=== PATIENT | female | born 1925 | race Caucasian/White ===

== ENCOUNTER 2016-12-26 16:01 | Inpatient (IN) | payer MEDICARE, OTHER ==
[~2016-12-26] VITALS: Ht 157.5 cm; Wt 70.1 kg
--- NOTE | 2016-12-26 16:47 | PHYS DOC ---
Adult General Chief Complaint Chief Complaint: PSYCH EVALUATION HPI HPI Patient is a 89 year old F who presents with local clearance for psych evaluation. Patient was transferred from half-way secondary to increased combativeness for a medical clearance for geriatric psych. PT should has no complaints. Review of Systems Review of Systems GEN: Denies fevers, chills, sweats HEENT: Denies blurred vision, sore throat CV: Denies chest pain RESP: Denies shortness of air, cough GI: Denies n/v/d NEURO: Denies confusion, dizziness MSK: Denies weakness, joint pain/swelling Physical Exam Physical Exam GEN.: No apparent distress. Alert and oriented. HEENT: Head is normocephalic, atraumatic NECK: Supple. LUNGS: CTAB. HEART: RRR, S1, S2 present. Peripheral pulses intact ABDOMEN: Soft, nontender. Positive bowel sounds. EXTREMITIES: Without any cyanosis. NEUROLOGIC: Normal speech, normal tone PSYCHIATRIC: Normal affect, normal mood. SKIN: No ulcerations Current Patient Data Lab Results Laboratory Tests Test 12/26/16 16:30 White Blood Count 6.9 x10^3/uL Red Blood Count 4.01 x10^6/uL Hemoglobin 13.1 g/dL Hematocrit 39.4 % Mean Corpuscular Volume 98 fL Mean Corpuscular Hemoglobin 33 pg Mean Corpuscular Hemoglobin Concent 33 g/dL Red Cell Distribution Width 13.7 % Platelet Count 248 x10^3/uL Neutrophils (%) (Auto) 45 % Lymphocytes (%) (Auto) 39 % Monocytes (%) (Auto) 12 % Eosinophils (%) (Auto) 4 % Basophils (%) (Auto) 1 % Neutrophils # (Auto) 3.1 x10^3uL Lymphocytes # (Auto) 2.7 x10^3/uL Monocytes # (Auto) 0.8 x10^3/uL Eosinophils # (Auto) 0.2 x10^3/uL Basophils # (Auto) 0.1 x10^3/uL Sodium Level 141 mmol/L Potassium Level 3.8 mmol/L Chloride Level 105 mmol/L Carbon Dioxide Level 27 mmol/L Anion Gap 9 Blood Urea Nitrogen 12 mg/dL Creatinine 1.2 mg/dL Estimated GFR (Cockcroft-Gault) 42.3 BUN/Creatinine Ratio 10 Glucose Level 140 mg/dL Calcium Level 8.4 mg/dL Total Bilirubin 0.3 mg/dL Aspartate Amino Transf (AST/SGOT) 18 U/L Alanine Aminotransferase (ALT/SGPT) 16 U/L Alkaline Phosphatase 82 U/L Total Protein 7.6 g/dL Albumin 3.3 g/dL Albumin/Globulin Ratio 0.8 Lipase 167 U/L EKG EKG 1653: EKG shows normal sinus rhythm rate of 78 no STEMI [] Radiology/Procedures Radiology/Procedures Portable chest, 12/26/2016: History: COPD, hypertension The heart size and pulmonary vascularity are normal. There is calcific plaquing of the thoracic aorta. There is a retrocardiac mass just left of midline which is probably a hiatal hernia. No pulmonary infiltrates are seen. There is no evidence of pleural fluid. IMPRESSION: 1. Probable small hiatal hernia. 2. No acute cardiopulmonary abnormality is detected. [] Course & Med Decision Making Course & Med Decision Making Pertinent Labs and Imaging studies reviewed. (See chart for details) MDM: After reviewing the chart, CC/HPI/PMH, physical exam, [lab results], [ radiological results], I do not believe the patient has emergent medical condition warranting further workup and is medically cleared to be transferred to geriatric psych for further psychiatric evaluation [] Dragon Disclaimer Dragon Disclaimer This chart was dictated in whole or in part using Voice Recognition software in a busy, high-work load, and often noisy Emergency Department environment. It may contain unintended and wholly unrecognized errors or omissions. Departure Departure: Impression: Primary Impression: Combative behavior Disposition: 65 XFER TO PSYCH HOSP/UNIT Condition: STABLE OLIVER HILL DO Dec 26, 2016 16:47
[2016-12-26 16:51] LABS: BASO # 0.1 x10^3/uL (0.0-0.2); BASO % 1 % (0-3); EOS # 0.2 x10^3/uL (0.0-0.7); EOS % 4 % (0-3); HEMATOCRIT 39.4 % (36.0-47.0); HEMOGLOBIN 13.1 g/dL (12.0-15.5); LYMPH # 2.7 x10^3/uL (1.0-4.8); LYMPH % 39 % (24-48); MEAN CORPUSCULAR HEMOGLOBIN 33 pg (25-35); MEAN CORPUSCULAR HGB CONC 33 g/dL (31-37); MEAN CORPUSCULAR VOLUME 98 fL (79-100); MONO # 0.8 x10^3/uL (0.0-1.1); MONO % 12 % (0-9); NEUT # 3.1 x10^3uL (1.8-7.7); NEUT % 45 % (31-73); PLATELET COUNT 248 x10^3/uL (140-400); RED BLOOD COUNT 4.01 x10^6/uL (3.50-5.40); RED CELL DISTRIBUTION WIDTH 13.7 % (11.5-14.5); WHITE BLOOD COUNT 6.9 x10^3/uL (4.0-11.0)
--- NOTE | 2016-12-26 16:56 | RAD ---
Portable chest, 12/26/2016: History: COPD, hypertension The heart size and pulmonary vascularity are normal. There is calcific plaquing of the thoracic aorta. There is a retrocardiac mass just left of midline which is probably a hiatal hernia. No pulmonary infiltrates are seen. There is no evidence of pleural fluid. IMPRESSION: 1. Probable small hiatal hernia. 2. No acute cardiopulmonary abnormality is detected.
--- NOTE | 2016-12-26 17:01 | EKG ---
[address] [address] Test Date: 2016-12-26 Test Time: 16:50:43 Pat Name: ODALIS POWER Department: Room: Gender: F Corporate Human Resources Manager: DONITA : [id number] Requested By: OLIVER HILL Order Number: [id number] Reading MD: Faisal Damon Measurements Intervals Poth Rate: 78 P: 90 FL: 134 QRS: -9 QRSD: 80 T: 14 QT: 394 QTc: 453 Interpretive Statements SINUS RHYTHM ATRIAL PREMATURE COMPLEX(ES) Electronically Signed On 12-28-2016 8:52:23 CDT by Faisal Damon
[2016-12-26 17:04] LABS: ALBUMIN 3.3 g/dL (3.4-5.0); ALBUMIN/GLOBULIN RATIO 0.8 (1.0-1.7); CALCIUM 8.4 mg/dL (8.5-10.1); CREATININE 1.2 mg/dL (0.6-1.0); GFR 42.3; POTASSIUM 3.8 mmol/L (3.5-5.1); TOTAL BILIRUBIN 0.3 mg/dL (0.2-1.0); TOTAL PROTEIN 7.6 g/dL (6.4-8.2)
[2016-12-26 17:18] LABS: BACTERIA,URINE FEW /HPF (0-FEW); BILIRUBIN,URINE NEG (NEG); CLARITY,URINE HAZY; COLOR,URINE YELLOW; GLUCOSE,URINE NEG (NEG); NITRITE,URINE NEG (NEG); SQUAMOUS EPITHELIAL CELL,UR MANY /LPF; UROBILINOGEN,URINE 0.2 mg/dL (0.2 mg/dL)
[2016-12-26 18:35] VITALS: BP 142/73
[2016-12-26] MEDS ORDERED: LORA0.5T96 PO (19:08)
[2016-12-26] MEDS ORDERED: DOCU-109 PO (19:08)
[2016-12-26] MEDS ORDERED: CHOL10003 PO (19:08)
[2016-12-26] MEDS ORDERED: GLUC1CAP41 PO (19:08)
[2016-12-26] MEDS ORDERED: CALC-157 PO (19:08)
[2016-12-26] MEDS ORDERED: OXYB10TA7 PO (19:08)
[2016-12-26] MEDS ORDERED: CRAN405C PO (19:08)
[2016-12-26] MEDS ORDERED: ESTR42.53 VG (19:08)
[2016-12-26] MEDS ORDERED: ASPI-630 PO (19:08)
[2016-12-26] MEDS ORDERED: MAG360OR24 PO (19:09)
[2016-12-26] MEDS ORDERED: ACET325T9 PO ×2 (19:09)
[2016-12-26] MEDS ORDERED: OMEP20CA9 PO (19:09)
[2016-12-26] MEDS ORDERED: SERT25TA PO (19:09)
[2016-12-26] MEDS ORDERED: LEVO88TA2 PO (19:09)
[2016-12-26] MEDS ORDERED: BETA1TAB3 PO (19:09)
[2016-12-26] MEDS ORDERED: MEMA10TA PO (19:09)
[2016-12-26] MEDS ORDERED: SIMV10TA PO (19:09)
[2016-12-26] MEDS ORDERED: QUET50TA5 PO (19:09)
[2016-12-26] MEDS ORDERED: QUET100T4 PO (19:09)
[2016-12-26] MEDS ORDERED: MAG HYDROX/AL HYDROX/SIMETH 30 ML ORAL.SUSP PO PRN (19:15)
[2016-12-26] MEDS ORDERED: METHYL SALICYLATE/MENTHOL TOPICAL OINTMENT 29GM TUBE. TP PRN (19:15)
[2016-12-26] MEDS ORDERED: MAGNESIUM HYDROXIDE 2,400 MG/30 ML ORAL.SUSP. PO PRN (19:15)
[2016-12-26] MEDS ORDERED: ACETAMINOPHEN 325 MG TABLET PO PRN ×2 (19:15→20:30)
--- NOTE | 2016-12-26 19:50 | PDOC ---
Exam Geoff Demential Exam: Geoff Note: Please also refer to the separate dictated note~for this date of service dictated separately.~Patient seen individually. Discussed the patient with Nursing staff reviewed the chart.~Reviewed interim history and current functioning. Reviewed vital signs,~Labs/ Radiology~and current medications noted below. Continue current treatment with the changes noted in the dictated addendum note Assessment: Vital Signs: Vital Signs Date Time Temp Pulse Resp B/P (MAP) Pulse Ox O2 Delivery O2 Flow Rate FiO2 12/26/16 18:35 98.1 78 18 142/73 (96) 92 12/26/16 16:10 Room Air Labs: Laboratory Tests Test 12/26/16 16:20 12/26/16 16:30 Urine Collection Type Unknown Urine Color Yellow Urine Clarity Hazy Urine pH 6.0 Urine Specific [place] 1.010 Urine Protein Neg (NEG-TRACE) Urine Glucose (UA) Neg mg/dL (NEG) Urine Ketones (Stick) Trace mg/dL (NEG) Urine Blood Trace (NEG) Urine Nitrite Neg (NEG) Urine Bilirubin Neg (NEG) Urine Urobilinogen Dipstick 0.2 mg/dL (0.2 mg/dL) Urine Leukocyte Esterase Mod (NEG) Urine RBC 3-5 /HPF (0-2) Urine WBC 11-20 /HPF (0-4) Urine Squamous Epithelial Cells Many /LPF Urine Bacteria Few /HPF (0-FEW) White Blood Count 6.9 x10^3/uL (4.0-11.0) Red Blood Count 4.01 x10^6/uL (3.50-5.40) Hemoglobin 13.1 g/dL (12.0-15.5) Hematocrit 39.4 % (36.0-47.0) Mean Corpuscular Volume 98 fL (79-100) Mean Corpuscular Hemoglobin 33 pg (25-35) Mean Corpuscular Hemoglobin Concent 33 g/dL (31-37) Red Cell Distribution Width 13.7 % (11.5-14.5) Platelet Count 248 x10^3/uL (140-400) Neutrophils (%) (Auto) 45 % (31-73) Lymphocytes (%) (Auto) 39 % (24-48) Monocytes (%) (Auto) 12 % (0-9) H Eosinophils (%) (Auto) 4 % (0-3) H Basophils (%) (Auto) 1 % (0-3) Neutrophils # (Auto) 3.1 x10^3uL (1.8-7.7) Lymphocytes # (Auto) 2.7 x10^3/uL (1.0-4.8) Monocytes # (Auto) 0.8 x10^3/uL (0.0-1.1) Eosinophils # (Auto) 0.2 x10^3/uL (0.0-0.7) Basophils # (Auto) 0.1 x10^3/uL (0.0-0.2) Sodium Level 141 mmol/L (136-145) Potassium Level 3.8 mmol/L (3.5-5.1) Chloride Level 105 mmol/L (98-107) Carbon Dioxide Level 27 mmol/L (21-32) Anion Gap 9 (6-14) Blood Urea Nitrogen 12 mg/dL (7-20) Creatinine 1.2 mg/dL (0.6-1.0) H Estimated GFR (Cockcroft-Gault) 42.3 BUN/Creatinine Ratio 10 (6-20) Glucose Level 140 mg/dL (70-99) H Calcium Level 8.4 mg/dL (8.5-10.1) L Total Bilirubin 0.3 mg/dL (0.2-1.0) Aspartate Amino Transferase (AST) 18 U/L (15-37) Alanine Aminotransferase (ALT) 16 U/L (14-59) Alkaline Phosphatase 82 U/L (46-116) Total Protein 7.6 g/dL (6.4-8.2) Albumin 3.3 g/dL (3.4-5.0) L Albumin/Globulin Ratio 0.8 (1.0-1.7) L Lipase 167 U/L (73-393) Current Medications: Meds: Current Medications Lorazepam (Ativan) 0.5 mg PRN Q4HRS PRN PO ANXIETY; Start 12/26/16 at 19:15 Memantine (Namenda) 10 mg BID PO ; Start 12/26/16 at 21:00 Quetiapine Fumarate (SEROquel) 50 mg BID92 PO ; Start 12/27/16 at 09:00 Quetiapine Fumarate (SEROquel) 100 mg HS PO ; Start 12/26/16 at 21:00 Sertraline HCl (Zoloft) 25 mg DAILY PO ; Start 12/27/16 at 09:00 Acetaminophen (Tylenol) 650 mg PRN Q6HRS PRN PO PAIN / TEMP; Start 12/26/16 at 19:15 Multi-Ingredient Ointment (Analgesic [place]) 1 [place] PRN QID PRN TP MUSCLE PAIN; Start 12/26/16 at 19:15 Al Hydroxide/Mg Hydroxide (Mylanta Plus Xs) 15 ml PRN AFTMEALHC PRN PO DYSPEPSIA; Start 12/26/16 at 19:15 Magnesium Hydroxide (Milk Of Magnesia) 2,400 mg PRN QHS PRN PO CONSTIPATION; Start 12/26/16 at 19:15 Active Scripts Active Reported Zoloft (Sertraline Hcl) 25 Mg Tablet 25 Mg PO DAILY Zocor (Simvastatin) 10 Mg Tablet 10 Mg PO HS Tylenol (Acetaminophen) 325 Mg Tablet 650 Mg PO TID Tylenol (Acetaminophen) 325 Mg Tablet 650 Mg PO Q4HRS PRN Synthroid (Levothyroxine Sodium) 88 Mcg Tablet 88 Mcg PO DAILYAC Seroquel (Quetiapine Fumarate) 50 Mg Tablet 50 Mg PO BID92 Seroquel (Quetiapine Fumarate) 100 Mg Tablet 100 Mg PO HS Prosight Tablet (Beta-Carotene(A) W-C & E/Min) 1 Each Tablet 1 Each PO DAILY Omeprazole 20 Mg Capsule.dr 20 Mg PO DAILY Namenda (Memantine Hcl) 10 Mg Tablet 10 Mg PO BID Alum-Mag Hydroxide-Simeth Liq (Mag Hydrox/Al Hydrox/Simeth) 360 Ml Oral.susp 30 Ml PO Q4HRS PRN Glucosamine & Chondroitin Cap (Glucosa Barriga 2KCL/Chondroitin Barriga) 1 Each Capsule 1 Each PO BID Estrace (Estradiol) 42.5 Gm Cream.appl 1 Gm VG 3X/WEEK Ditropan Xl (Oxybutynin Chloride) 10 Mg Tab.er.24 10 Mg PO DAILY Cranberry (Cranberry Extract) 405 Mg Capsule 405 Mg PO BID Colace (Docusate Sodium) 100 Mg Capsule 100 Mg PO DAILY Vitamin D3 (Cholecalciferol (Vitamin D3)) 1,000 Unit Tablet 2,000 Unit PO Calcium 500 + Vit D 200 Tablet (Calcium Carbonate/Vitamin D3) 1 Each Tablet 1 Each PO DAILY Ativan (Lorazepam) 0.5 Mg Tablet 0.5 Mg PO PRN Q4HRS PRN Aspirin 81 Mg Tab.chew 81 Mg PO DAILY FERNANDA SOOD MD Dec 26, 2016 19:50
[2016-12-26] MEDS ORDERED: NON FORMULARY ITEM (Mag Hydrox/Al Hydrox/Simeth (Alum-Mag Hydroxide-Simeth Liq) 30 ML) PO PRN (20:30)
[2016-12-26] MEDS: MEMANTINE 10 MG TABLET. PO SCH (20:59)
[2016-12-26] MEDS: OXYBUTYNIN CHLORIDE 5 MG TABLET PO SCH (21:00)
[2016-12-26] MEDS: SIMVASTATIN 10 MG TABLET PO SCH (21:00)
[2016-12-26] MEDS: QUEtiapine 100 MG TABLET. PO SCH (21:00)
[2016-12-26] MEDS ORDERED: CRANBERRY EXTRACT 405 MG PO SCH (21:00)
[2016-12-26] MEDS: ACETAMINOPHEN 325 MG TABLET PO SCH (21:00)
[2016-12-26] MEDS: GLUCOSAMINE/CHOND 500/400MG CAPSULE PO SCH (21:00)
[2016-12-27 05:44] VITALS: BP 154/84
[2016-12-27] MEDS: LEVOTHYROXINE 88 MCG TABLET PO SCH (06:07)
[2016-12-27] MEDS: GLUCOSAMINE/CHOND 500/400MG CAPSULE PO SCH ×2 (08:40→20:34)
[2016-12-27] MEDS: MEMANTINE 10 MG TABLET. PO SCH ×2 (08:41→20:33)
[2016-12-27] MEDS: ACETAMINOPHEN 325 MG TABLET PO SCH ×3 (08:41→20:33)
[2016-12-27] MEDS: OXYBUTYNIN CHLORIDE 5 MG TABLET PO SCH ×2 (08:41→20:34)
[2016-12-27] MEDS: PANTOPRAZOLE 20 MG TABLET. PO SCH (08:44)
[2016-12-27] MEDS: SERTRALINE 25 MG TABLET. PO SCH (08:44)
[2016-12-27] MEDS: MULTIVITAMIN I-VITE TABLET. PO SCH (08:44)
[2016-12-27] MEDS: DOCUSATE SODIUM 100 MG CAPSULE PO SCH (08:44)
[2016-12-27] MEDS: CHOLECALCIFEROL (VITAMIN D3) 1,000 UNIT TABLET PO SCH (08:44)
[2016-12-27] MEDS: CALCIUM CARB/VIT D3 500/200 TABLET PO SCH (08:44)
[2016-12-27] MEDS: ASPIRIN 81 MG TAB.CHEW PO SCH (08:44)
[2016-12-27] MEDS: QUEtiapine 50 MG TABLET. PO SCH ×2 (08:44→14:07)
[2016-12-27] MEDS ORDERED: ESTRADIOL 0.01% VAGINAL CREAM 42.5GM TUBE. VG SCH (09:00)
[2016-12-27 14:13] LABS: THYROID STIM HORMONE (TSH) 3.382 uIU/mL (0.358-3.740)
[2016-12-27 15:09] LABS: FREE T4 0.88 ng/dL (0.76-1.46)
[2016-12-27 15:58] VITALS: BP 137/74
--- NOTE | 2016-12-27 16:30 | RAD ---
CT head and C-spine without contrast 12/27/2016 Clinical indication: Stabbing pain in right side of neck. Altered mental status. Comparison: None. Technique: Multiple CT images were obtained of the head and cervical spine without contrast occurring to standard protocol. Coronal and sagittal reformations were obtained of the cervical spine. PQRS Compliance Statement: One or more of the following individualized dose reduction techniques were utilized for this examination: 1. Automated exposure control 2. Adjustment of the mA and/or kV according to patient size 3. Use of iterative reconstruction technique Head: Ventricles and subarachnoid spaces are normal in size and configuration for age. There is patchy and confluent bilateral hemispheric white matter low attenuation compatible with moderate to severe nonspecific white matter disease. No acute intracranial hemorrhage or extra-axial fluid collection. The sullivan-white matter interval spaces are otherwise maintained. The basilar cisterns are patent. No midline shift. There is calcified atheromatous disease of the distal internal carotid arteries. Cervical spine: No acute cervical spine fracture or subluxation. Cervical vertebral body heights are maintained. There is multilevel cervical disc degeneration greatest amount agree at C5-C6 with disc space narrowing and mild anterior osteophyte formation. There is multilevel facet hypertrophy with no significant neural foraminal narrowing. Moderate bilateral axial arthrosis with no associated widening. The paraspinal soft tissues are within normal limits. There is moderate calcified atheromatous disease of the bilateral carotid bulbs with luminal stenosis not assessed due to lack of intravenous contrast. There is biapical pleural parenchymal scarring, asymmetric on the left. Impression: Head: 1. No acute intracranial hemorrhage. 2. Moderate to severe nonspecific white matter low attenuation which may be related to chronic small vessel ischemic disease. If further evaluation is clinically indicated, MRI head could be obtained. Cervical spine: 1. No acute cervical spine fracture or subluxation. 2. Mild biapical pleural parenchymal scarring, slightly asymmetric on the left. If clinically indicated, follow-up noncontrast CT chest in 6 months to assess for stability could be obtained.
--- NOTE | 2016-12-27 19:51 | PDOC ---
Exam Geoff Demential Exam: Geoff Note: Please also refer to the separate dictated note~for this date of service dictated separately.~Patient seen individually. Discussed the patient with Nursing staff reviewed the chart.~Reviewed interim history and current functioning. Reviewed vital signs,~Labs/ Radiology~and current medications noted below. Continue current treatment with the changes noted in the dictated addendum note Assessment: Vital Signs: Vital Signs Date Time Temp Pulse Resp B/P (MAP) Pulse Ox O2 Delivery O2 Flow Rate FiO2 12/27/16 15:58 97.5 84 18 137/74 (95) 92 Room Air I&O Intake and Output 12/27/16 07:00 Intake Total 80 ml Balance 80 ml Intake Oral 80 ml Current Medications: Meds: Current Medications Lorazepam (Ativan) 0.5 mg PRN Q4HRS PRN PO ANXIETY; Start 12/26/16 at 19:15 Memantine (Namenda) 10 mg BID PO Last administered on 12/27/16 08:41; Start at 21:00 Quetiapine Fumarate (SEROquel) 50 mg BID92 PO Last administered on 12/27/16 14 :07; Start 12/27/16 at 09:00 Quetiapine Fumarate (SEROquel) 100 mg HS PO Last administered on 12/26/16 21: 00; Start 12/26/16 at 21:00 Sertraline HCl (Zoloft) 25 mg DAILY PO Last administered on 12/27/16 08:44; Start 12/27/16 at 09:00 Acetaminophen (Tylenol) 650 mg PRN Q6HRS PRN PO PAIN / TEMP; Start 12/26/16 at 19:15; Stop 12/26/16 at 20:36; Status DC Multi-Ingredient Ointment (Analgesic [place]) 1 [place]ol[place] PRN QID PRN TP MUSCLE PAIN; Start 12/26/16 at 19:15 Al Hydroxide/Mg Hydroxide (Mylanta Plus Xs) 15 ml PRN AFTMEALHC PRN PO DYSPEPSIA; Start 12/26/16 at 19:15 Magnesium Hydroxide (Milk Of Magnesia) 2,400 mg PRN QHS PRN PO CONSTIPATION; Start 12/26/16 at 19:15 Acetaminophen (Tylenol) 650 mg PRN Q4HRS PRN PO MILD PAIN; Start 12/26/16 at 20 :30 Acetaminophen (Tylenol) 650 mg TID PO Last administered on 12/27/16 14:07; Start 12/26/16 at 21:00 Aspirin (Children'S Aspirin) 81 mg DAILY PO Last administered on 12/27/16 08: 44; Start 12/27/16 at 09:00 Calcium/Vitamin D (Oscal D 500mg/ 200uts) 1 tab DAILY PO Last administered on 08:44; Start 12/27/16 at 09:00 Vitamin D (Vitamin D3) 2,000 unit DAILY PO Last administered on 12/27/16 08:44 ; Start 12/27/16 at 09:00 Docusate Sodium (Colace) 100 mg DAILY PO Last administered on 12/27/16 08:44; Start 12/27/16 at 09:00 Estradiol (Estrace) 1 carol[place] 3X/WEEK VG ; Start 12/27/16 at 09:00; Stop 12/27/16 at 12:08; Status DC Levothyroxine Sodium (Synthroid) 88 mcg DAILY06 PO Last administered on 06:07; Start 12/27/16 at 06:00 Simvastatin (Zocor) 10 mg HS PO Last administered on 12/26/16 21:00; Start at 21:00 Multivitamins/ Minerals (I-Bobby) 1 tab DAILY PO Last administered on 12/27/16 08:44; Start 12/27/16 at 09:00 Non-Formulary Medication 405 mg BID PO ; Start 12/26/16 at 21:00; Stop 12/26/16 at 21:00; Status DC Glucosamine/ Chondroitin (Glucosamine-Chondroitin 500/400mg) 1 cap BID PO Last administered on 12/27/16 08:40; Start 12/26/16 at 21:00 Non-Formulary Medication 30 ml Q4HRS PRN PO indigestion; Start 12/26/16 at 20: 30; Stop 12/26/16 at 20:41; Status DC Pantoprazole Sodium (Protonix) 20 mg DAILYAC PO Last administered on 12/27/16 08:44; Start 12/27/16 at 07:30 Oxybutynin Chloride (Ditropan) 5 mg BID PO Last administered on 7/26/17at 08:41 ; Start 12/26/16 at 21:00 Estradiol (Estrace) 1 carolina MoWeFr@2100 VG ; Start 12/27/16 at 21:00 Active Scripts Active Reported Zoloft (Sertraline Hcl) 25 Mg Tablet 25 Mg PO DAILY Zocor (Simvastatin) 10 Mg Tablet 10 Mg PO HS Tylenol (Acetaminophen) 325 Mg Tablet 650 Mg PO TID Tylenol (Acetaminophen) 325 Mg Tablet 650 Mg PO Q4HRS PRN Synthroid (Levothyroxine Sodium) 88 Mcg Tablet 88 Mcg PO DAILYAC Seroquel (Quetiapine Fumarate) 50 Mg Tablet 50 Mg PO BID92 Seroquel (Quetiapine Fumarate) 100 Mg Tablet 100 Mg PO HS Prosight Tablet (Beta-Carotene(A) W-C & E/Min) 1 Each Tablet 1 Each PO DAILY Omeprazole 20 Mg Capsule.dr 20 Mg PO DAILY Namenda (Memantine Hcl) 10 Mg Tablet 10 Mg PO BID Alum-Mag Hydroxide-Simeth Liq (Mag Hydrox/Al Hydrox/Simeth) 360 Ml Oral.susp 30 Ml PO Q4HRS PRN Glucosamine & Chondroitin Cap (Glucosa Barriga 2KCL/Chondroitin Barriga) 1 Each Capsule 1 Each PO BID Estrace (Estradiol) 42.5 Gm Cream.appl 1 Gm VG 3X/WEEK Ditropan Xl (Oxybutynin Chloride) 10 Mg Tab.er.24 10 Mg PO DAILY Cranberry (Cranberry Extract) 405 Mg Capsule 405 Mg PO BID Colace (Docusate Sodium) 100 Mg Capsule 100 Mg PO DAILY Vitamin D3 (Cholecalciferol (Vitamin D3)) 1,000 Unit Tablet 2,000 Unit PO Calcium 500 + Vit D 200 Tablet (Calcium Carbonate/Vitamin D3) 1 Each Tablet 1 Each PO DAILY Ativan (Lorazepam) 0.5 Mg Tablet 0.5 Mg PO PRN Q4HRS PRN Aspirin 81 Mg Tab.chew 81 Mg PO DAILY FERNANDA SOOD MD Dec 27, 2016 19:51
[2016-12-27] MEDS: QUEtiapine 100 MG TABLET. PO SCH (20:33)
[2016-12-27] MEDS: SIMVASTATIN 10 MG TABLET PO SCH (20:33)
[2016-12-27] MEDS: ESTRADIOL 0.01% VAGINAL CREAM 42.5GM TUBE. VG SCH (20:35)
[2016-12-27] MEDS: LORazepam 0.5 MG TABLET PO PRN (22:21)
--- NOTE | 2016-12-27 23:39 | ACF ---
Admission Criteria Forms PSYCHIATRIC DISORDERS Clinical Indications for Inpatient Care (Place 'X' for any and all applicable criteria): Ongoing inpatient care may be needed for 1 or more of the following(1)(2)(3)(4)( 6)(7)(8): [ ]I. Danger to self or others not manageable at lower level of care. [ ]II. Grave disability (eg, inability to perform self care necessary at lower level of care) [ ]III. Agitation or inappropriate behavior interfering with care for primary condition (eg, attempting to discontinue lines or drains prematurely, unable to cooperate with respiratory care) [x]IV. Severe disability or disorder indicated by ALL of the following: [x]a) Severe behavioral health disorder-related symptoms or condition indicated by 1 or more of the following: [ ]i) Severe problem with cognition, memory, judgment, or impulse control [x]ii) Severe clinical manifestations (eg, hallucinations, delusions, other acute psychotic symptoms, capri, extreme agitation or anxiety) [x]b) Patient management at lower level of care is not feasible until acute intervention or modification is initiated. Extended stay beyond goal length of stay for the primary condition may be needed untilALLof the following are present(1)(2)(3)(4)(722)(23): [ ]a) Danger to self or others is absent or manageable at lower level of care [ ]b) Behavior crisis management, including physical or chemical restraints, is required and is not available at a lower level of care. [ ]c) Behavioral symptoms (e.g., agitation, somnolence, inappropriate behavior) are present, and are not manageable at a lower level of care. [ ]d) Patient cannot understand follow-up treatment and crisis plan. [ ]e) Provider and supports are sufficiently available at lower level of care. [ ]f) Patient can participate (e.g., verify absence of plan for harm) and is in needed of monitoring. The original [facility] [employer] content created by [facility] [employer] has been revised. The portions of the content which have been revised are identified through the use of italic text, and [employer] has neither reviewed nor approved the modified material. All other unmodified content is copyright [facility] [employer]. Please see references footnoted in the original [facility] edition 2015 Admission Criteria Met?: Yes BASIA LEWIS Dec 27, 2016 23:39
[2016-12-28 03:11] LABS: HEMOGLOBIN A1C 5.9 % (4.8-5.6)
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
[2016-12-28 05:42] VITALS: BP 143/79
[2016-12-28] MEDS: LEVOTHYROXINE 88 MCG TABLET PO SCH (06:14)
[2016-12-28] MEDS: PANTOPRAZOLE 20 MG TABLET. PO SCH (07:46)
[2016-12-28] MEDS: SERTRALINE 25 MG TABLET. PO SCH (07:46)
[2016-12-28] MEDS: GLUCOSAMINE/CHOND 500/400MG CAPSULE PO SCH ×2 (07:46→19:15)
[2016-12-28] MEDS: CHOLECALCIFEROL (VITAMIN D3) 1,000 UNIT TABLET PO SCH (07:46)
[2016-12-28] MEDS: ASPIRIN 81 MG TAB.CHEW PO SCH (07:46)
[2016-12-28] MEDS: DOCUSATE SODIUM 100 MG CAPSULE PO SCH (07:46)
[2016-12-28] MEDS: ACETAMINOPHEN 325 MG TABLET PO SCH ×3 (07:46→19:15)
[2016-12-28] MEDS: CALCIUM CARB/VIT D3 500/200 TABLET PO SCH (07:46)
[2016-12-28] MEDS: MULTIVITAMIN I-VITE TABLET. PO SCH (07:46)
[2016-12-28] MEDS: MEMANTINE 10 MG TABLET. PO SCH ×2 (07:47→19:15)
[2016-12-28] MEDS: OXYBUTYNIN CHLORIDE 5 MG TABLET PO SCH ×2 (07:47→19:15)
[2016-12-28] MEDS: QUEtiapine 50 MG TABLET. PO SCH ×2 (07:47→13:52)
[2016-12-28] MEDS ORDERED: IPRATRPIUM/ALBUTEROL 0.5/2.5MG 3 ML NEBU. NEB PRN (11:15)
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
[2016-12-28] MEDS: MAGNESIUM CHLORIDE ER 64 MG TABLET.ER PO SCH (13:52)
[2016-12-28] MEDS: DIVALPROEX 125 MG CAP.SPRINK PO SCH (13:53)
[2016-12-28 16:01] VITALS: BP 134/67
[2016-12-28] MEDS: QUEtiapine 100 MG TABLET. PO SCH (19:15)
[2016-12-28] MEDS: SIMVASTATIN 10 MG TABLET PO SCH (19:15)
--- NOTE | 2016-12-28 19:48 | PDOC ---
Exam Geoff Demential Exam: Geoff Note: Please also refer to the separate dictated note~for this date of service dictated separately.~Patient seen individually. Discussed the patient with Nursing staff reviewed the chart.~Reviewed interim history and current functioning. Reviewed vital signs,~Labs/ Radiology~and current medications noted below. Continue current treatment with the changes noted in the dictated addendum note Assessment: Vital Signs: Vital Signs Date Time Temp Pulse Resp B/P (MAP) Pulse Ox O2 Delivery O2 Flow Rate FiO2 12/28/16 16:01 98.1 76 19 134/67 (89) 92 12/28/16 05:42 Room Air I&O Intake and Output 12/28/16 07:00 Intake Total 840 ml Balance 840 ml Intake Oral 840 ml Current Medications: Meds: Current Medications Lorazepam (Ativan) 0.5 mg PRN Q4HRS PRN PO ANXIETY Last administered on 22:21; Start 12/26/16 at 19:15 Memantine (Namenda) 10 mg BID PO Last administered on 12/28/16 19:15; Start at 21:00 Quetiapine Fumarate (SEROquel) 50 mg BID92 PO Last administered on 12/28/16 13 :52; Start 12/27/16 at 09:00 Quetiapine Fumarate (SEROquel) 100 mg HS PO Last administered on 12/28/16 19: 15; Start 12/26/16 at 21:00 Sertraline HCl (Zoloft) 25 mg DAILY PO Last administered on 12/28/16 07:46; Start 12/27/16 at 09:00 Acetaminophen (Tylenol) 650 mg PRN Q6HRS PRN PO PAIN / TEMP; Start 12/26/16 at 19:15; Stop 12/26/16 at 20:36; Status DC Multi-Ingredient Ointment (Analgesic [place]) 1 [place] PRN QID PRN TP MUSCLE PAIN; Start 12/26/16 at 19:15 Al Hydroxide/Mg Hydroxide (Mylanta Plus Xs) 15 ml PRN AFTMEALHC PRN PO DYSPEPSIA; Start 12/26/16 at 19:15 Magnesium Hydroxide (Milk Of Magnesia) 2,400 mg PRN QHS PRN PO CONSTIPATION; Start 12/26/16 at 19:15 Acetaminophen (Tylenol) 650 mg PRN Q4HRS PRN PO MILD PAIN; Start 12/26/16 at 20 :30 Acetaminophen (Tylenol) 650 mg TID PO Last administered on 12/28/16 19:15; Start 12/26/16 at 21:00 Aspirin (Children'S Aspirin) 81 mg DAILY PO Last administered on 12/28/16 07: 46; Start 12/27/16 at 09:00 Calcium/Vitamin D (Oscal D 500mg/ 200uts) 1 tab DAILY PO Last administered on 07:46; Start 12/27/16 at 09:00 Vitamin D (Vitamin D3) 2,000 unit DAILY PO Last administered on 12/28/16 07:46 ; Start 12/27/16 at 09:00 Docusate Sodium (Colace) 100 mg DAILY PO Last administered on 12/28/16 07:46; Start 12/27/16 at 09:00 Estradiol (Estrace) 1 carol[place] 3X/WEEK VG ; Start 12/27/16 at 09:00; Stop 12/27/16 at 12:08; Status DC Levothyroxine Sodium (Synthroid) 88 mcg DAILY06 PO Last administered on 06:14; Start 12/27/16 at 06:00 Simvastatin (Zocor) 10 mg HS PO Last administered on 12/28/16 19:15; Start at 21:00 Multivitamins/ Minerals (I-Bobby) 1 tab DAILY PO Last administered on 12/28/16 07:46; Start 12/27/16 at 09:00 Non-Formulary Medication 405 mg BID PO ; Start 12/26/16 at 21:00; Stop 12/26/16 at 21:00; Status DC Glucosamine/ Chondroitin (Glucosamine-Chondroitin 500/400mg) 1 cap BID PO Last administered on 12/28/16 19:15; Start 12/26/16 at 21:00 Non-Formulary Medication 30 ml Q4HRS PRN PO indigestion; Start 12/26/16 at 20: 30; Stop 12/26/16 at 20:41; Status DC Pantoprazole Sodium (Protonix) 20 mg DAILYAC PO Last administered on 12/28/16 07:46; Start 12/27/16 at 07:30 Oxybutynin Chloride (Ditropan) 5 mg BID PO Last administered on 12/28/16 19:15 ; Start 12/26/16 at 21:00 Estradiol (Estrace) 1 carolina MoWeFr@2100 VG Last administered on 12/27/16 20:35; Start 12/27/16 at 21:00 Divalproex Sodium (Depakote Sprinkles) 125 mg BID92 PO Last administered on 13:53; Start 12/28/16 at 14:00 Magnesium Chloride (Mag Delay) 128 mg DAILY PO Last administered on 12/28/16 13:52; Start 12/28/16 at 10:45 Albuterol/ Ipratropium (Duoneb) 3 ml PRN QID PRN NEB WHEEZING; Start 12/28/16 at 11:15 Active Scripts Active Reported Zoloft (Sertraline Hcl) 25 Mg Tablet 25 Mg PO DAILY Zocor (Simvastatin) 10 Mg Tablet 10 Mg PO HS Tylenol (Acetaminophen) 325 Mg Tablet 650 Mg PO TID Tylenol (Acetaminophen) 325 Mg Tablet 650 Mg PO Q4HRS PRN Synthroid (Levothyroxine Sodium) 88 Mcg Tablet 88 Mcg PO DAILYAC Seroquel (Quetiapine Fumarate) 50 Mg Tablet 50 Mg PO BID92 Seroquel (Quetiapine Fumarate) 100 Mg Tablet 100 Mg PO HS Prosight Tablet (Beta-Carotene(A) W-C & E/Min) 1 Each Tablet 1 Each PO DAILY Omeprazole 20 Mg Capsule.dr 20 Mg PO DAILY Namenda (Memantine Hcl) 10 Mg Tablet 10 Mg PO BID Alum-Mag Hydroxide-Simeth Liq (Mag Hydrox/Al Hydrox/Simeth) 360 Ml Oral.susp 30 Ml PO Q4HRS PRN Glucosamine & Chondroitin Cap (Glucosa Barriga 2KCL/Chondroitin Barriga) 1 Each Capsule 1 Each PO BID Estrace (Estradiol) 42.5 Gm Cream.appl 1 Gm VG 3X/WEEK Ditropan Xl (Oxybutynin Chloride) 10 Mg Tab.er.24 10 Mg PO DAILY Cranberry (Cranberry Extract) 405 Mg Capsule 405 Mg PO BID Colace (Docusate Sodium) 100 Mg Capsule 100 Mg PO DAILY Vitamin D3 (Cholecalciferol (Vitamin D3)) 1,000 Unit Tablet 2,000 Unit PO Calcium 500 + Vit D 200 Tablet (Calcium Carbonate/Vitamin D3) 1 Each Tablet 1 Each PO DAILY Ativan (Lorazepam) 0.5 Mg Tablet 0.5 Mg PO PRN Q4HRS PRN Aspirin 81 Mg Tab.chew 81 Mg PO DAILY Diagnosis: Problems: (1) Anxiety disorder (2) Dementia, vascular, with depression (3) Dementia, vascular, with delusions (4) Dementia in Alzheimer's disease with depression (5) Dementia in Alzheimer's disease with delusions (6) Impulse control disorder FERNANDA SOOD MD Dec 28, 2016 19:48
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
[2016-12-29] MEDS: LEVOTHYROXINE 88 MCG TABLET PO SCH (05:56)
[2016-12-29 06:09] VITALS: BP 154/75
[2016-12-29] MEDS: DIVALPROEX 125 MG CAP.SPRINK PO SCH ×2 (07:59→13:57)
[2016-12-29] MEDS: ACETAMINOPHEN 325 MG TABLET PO SCH ×3 (07:59→19:18)
[2016-12-29] MEDS: MEMANTINE 10 MG TABLET. PO SCH ×2 (07:59→19:18)
[2016-12-29] MEDS: CHOLECALCIFEROL (VITAMIN D3) 1,000 UNIT TABLET PO SCH (07:59)
[2016-12-29] MEDS: MAGNESIUM CHLORIDE ER 64 MG TABLET.ER PO SCH (07:59)
[2016-12-29] MEDS: DOCUSATE SODIUM 100 MG CAPSULE PO SCH (07:59)
[2016-12-29] MEDS: GLUCOSAMINE/CHOND 500/400MG CAPSULE PO SCH ×2 (07:59→19:18)
[2016-12-29] MEDS: MULTIVITAMIN I-VITE TABLET. PO SCH (07:59)
[2016-12-29] MEDS: CALCIUM CARB/VIT D3 500/200 TABLET PO SCH (07:59)
[2016-12-29] MEDS: QUEtiapine 50 MG TABLET. PO SCH ×2 (07:59→13:58)
[2016-12-29] MEDS: PANTOPRAZOLE 20 MG TABLET. PO SCH (08:00)
[2016-12-29] MEDS: SERTRALINE 25 MG TABLET. PO SCH (08:00)
[2016-12-29] MEDS: OXYBUTYNIN CHLORIDE 5 MG TABLET PO SCH ×2 (08:00→19:17)
[2016-12-29] MEDS: ASPIRIN 81 MG TAB.CHEW PO SCH (08:00)
[2016-12-29 16:05] VITALS: BP 156/78
[2016-12-29] MEDS: QUEtiapine 100 MG TABLET. PO SCH (19:18)
[2016-12-29] MEDS: SIMVASTATIN 10 MG TABLET PO SCH (19:18)
[2016-12-29] MEDS: ESTRADIOL 0.01% VAGINAL CREAM 42.5GM TUBE. VG SCH (19:21)
--- NOTE | 2016-12-29 21:29 | PDOC ---
Exam Geoff Demential Exam: Geoff Note: Please also refer to the separate dictated note~for this date of service dictated separately.~Patient seen individually. Discussed the patient with Nursing staff reviewed the chart.~Reviewed interim history and current functioning. Reviewed vital signs,~Labs/ Radiology~and current medications noted below. Continue current treatment with the changes noted in the dictated addendum note Assessment: Vital Signs: Vital Signs Date Time Temp Pulse Resp B/P (MAP) Pulse Ox O2 Delivery O2 Flow Rate FiO2 12/29/16 16:05 98.4 77 18 156/78 (104) 93 12/28/16 05:42 Room Air I&O Intake and Output 12/29/16 07:00 Intake Total 840 ml Balance 840 ml Intake Oral 840 ml Current Medications: Meds: Current Medications Lorazepam (Ativan) 0.5 mg PRN Q4HRS PRN PO ANXIETY Last administered on 22:21; Start 12/26/16 at 19:15 Memantine (Namenda) 10 mg BID PO Last administered on 12/29/16 19:18; Start at 21:00 Quetiapine Fumarate (SEROquel) 50 mg BID92 PO Last administered on 12/29/16 13 :58; Start 12/27/16 at 09:00 Quetiapine Fumarate (SEROquel) 100 mg HS PO Last administered on 12/29/16 19: 18; Start 12/26/16 at 21:00 Sertraline HCl (Zoloft) 25 mg DAILY PO Last administered on 12/29/16 08:00; Start 12/27/16 at 09:00 Acetaminophen (Tylenol) 650 mg PRN Q6HRS PRN PO PAIN / TEMP; Start 12/26/16 at 19:15; Stop 12/26/16 at 20:36; Status DC Multi-Ingredient Ointment (Analgesic [place]) 1 [place]ol[place] PRN QID PRN TP MUSCLE PAIN; Start 12/26/16 at 19:15 Al Hydroxide/Mg Hydroxide (Mylanta Plus Xs) 15 ml PRN AFTMEALHC PRN PO DYSPEPSIA; Start 12/26/16 at 19:15 Magnesium Hydroxide (Milk Of Magnesia) 2,400 mg PRN QHS PRN PO CONSTIPATION; Start 12/26/16 at 19:15 Acetaminophen (Tylenol) 650 mg PRN Q4HRS PRN PO MILD PAIN; Start 12/26/16 at 20 :30 Acetaminophen (Tylenol) 650 mg TID PO Last administered on 12/29/16 19:18; Start 12/26/16 at 21:00 Aspirin (Children'S Aspirin) 81 mg DAILY PO Last administered on 12/29/16 08: 00; Start 12/27/16 at 09:00 Calcium/Vitamin D (Oscal D 500mg/ 200uts) 1 tab DAILY PO Last administered on 07:59; Start 12/27/16 at 09:00 Vitamin D (Vitamin D3) 2,000 unit DAILY PO Last administered on 12/29/16 07:59 ; Start 12/27/16 at 09:00 Docusate Sodium (Colace) 100 mg DAILY PO Last administered on 12/29/16 07:59; Start 12/27/16 at 09:00 Estradiol (Estrace) 1 carol[place] 3X/WEEK VG ; Start 12/27/16 at 09:00; Stop 12/27/16 at 12:08; Status DC Levothyroxine Sodium (Synthroid) 88 mcg DAILY06 PO Last administered on 05:56; Start 12/27/16 at 06:00 Simvastatin (Zocor) 10 mg HS PO Last administered on 12/29/16 19:18; Start at 21:00 Multivitamins/ Minerals (I-Bobby) 1 tab DAILY PO Last administered on 12/29/16 07:59; Start 12/27/16 at 09:00 Non-Formulary Medication 405 mg BID PO ; Start 12/26/16 at 21:00; Stop 12/26/16 at 21:00; Status DC Glucosamine/ Chondroitin (Glucosamine-Chondroitin 500/400mg) 1 cap BID PO Last administered on 12/29/16 19:18; Start 12/26/16 at 21:00 Non-Formulary Medication 30 ml Q4HRS PRN PO indigestion; Start 12/26/16 at 20: 30; Stop 12/26/16 at 20:41; Status DC Pantoprazole Sodium (Protonix) 20 mg DAILYAC PO Last administered on 12/29/16 08:00; Start 12/27/16 at 07:30 Oxybutynin Chloride (Ditropan) 5 mg BID PO Last administered on 12/29/16 19:17 ; Start 12/26/16 at 21:00 Estradiol (Estrace) 1 carolina MoWeFr@2100 VG Last administered on 12/29/16 19:21; Start 12/27/16 at 21:00 Divalproex Sodium (Depakote Sprinkles) 125 mg BID92 PO Last administered on 13:57; Start 12/28/16 at 14:00 Magnesium Chloride (Mag Delay) 128 mg DAILY PO Last administered on 12/29/16 07:59; Start 12/28/16 at 10:45 Albuterol/ Ipratropium (Duoneb) 3 ml PRN QID PRN NEB WHEEZING; Start 12/28/16 at 11:15 Active Scripts Active Reported Zoloft (Sertraline Hcl) 25 Mg Tablet 25 Mg PO DAILY Zocor (Simvastatin) 10 Mg Tablet 10 Mg PO HS Tylenol (Acetaminophen) 325 Mg Tablet 650 Mg PO TID Tylenol (Acetaminophen) 325 Mg Tablet 650 Mg PO Q4HRS PRN Synthroid (Levothyroxine Sodium) 88 Mcg Tablet 88 Mcg PO DAILYAC Seroquel (Quetiapine Fumarate) 50 Mg Tablet 50 Mg PO BID92 Seroquel (Quetiapine Fumarate) 100 Mg Tablet 100 Mg PO HS Prosight Tablet (Beta-Carotene(A) W-C & E/Min) 1 Each Tablet 1 Each PO DAILY Omeprazole 20 Mg Capsule.dr 20 Mg PO DAILY Namenda (Memantine Hcl) 10 Mg Tablet 10 Mg PO BID Alum-Mag Hydroxide-Simeth Liq (Mag Hydrox/Al Hydrox/Simeth) 360 Ml Oral.susp 30 Ml PO Q4HRS PRN Glucosamine & Chondroitin Cap (Glucosa Barriga 2KCL/Chondroitin Barriga) 1 Each Capsule 1 Each PO BID Estrace (Estradiol) 42.5 Gm Cream.appl 1 Gm VG 3X/WEEK Ditropan Xl (Oxybutynin Chloride) 10 Mg Tab.er.24 10 Mg PO DAILY Cranberry (Cranberry Extract) 405 Mg Capsule 405 Mg PO BID Colace (Docusate Sodium) 100 Mg Capsule 100 Mg PO DAILY Vitamin D3 (Cholecalciferol (Vitamin D3)) 1,000 Unit Tablet 2,000 Unit PO Calcium 500 + Vit D 200 Tablet (Calcium Carbonate/Vitamin D3) 1 Each Tablet 1 Each PO DAILY Ativan (Lorazepam) 0.5 Mg Tablet 0.5 Mg PO PRN Q4HRS PRN Aspirin 81 Mg Tab.chew 81 Mg PO DAILY Diagnosis: Problems: (1) Anxiety disorder (2) Dementia, vascular, with depression (3) Dementia, vascular, with delusions (4) Dementia in Alzheimer's disease with depression (5) Dementia in Alzheimer's disease with delusions (6) Impulse control disorder FERNANDA SOOD MD Dec 29, 2016 21:29
[2016-12-30] MEDS: LORazepam 0.5 MG TABLET PO PRN (00:53)
[2016-12-30] MEDS: LEVOTHYROXINE 88 MCG TABLET PO SCH (05:46)
[2016-12-30 05:57] VITALS: BP 169/83
[2016-12-30] MEDS: MULTIVITAMIN I-VITE TABLET. PO SCH (07:57)
[2016-12-30] MEDS: PANTOPRAZOLE 20 MG TABLET. PO SCH (07:57)
[2016-12-30] MEDS: MEMANTINE 10 MG TABLET. PO SCH ×2 (07:57→19:08)
[2016-12-30] MEDS: CALCIUM CARB/VIT D3 500/200 TABLET PO SCH (07:57)
[2016-12-30] MEDS: CHOLECALCIFEROL (VITAMIN D3) 1,000 UNIT TABLET PO SCH (07:57)
[2016-12-30] MEDS: MAGNESIUM CHLORIDE ER 64 MG TABLET.ER PO SCH (07:58)
[2016-12-30] MEDS: OXYBUTYNIN CHLORIDE 5 MG TABLET PO SCH ×2 (07:58→19:08)
[2016-12-30] MEDS: ASPIRIN 81 MG TAB.CHEW PO SCH (07:58)
[2016-12-30] MEDS: DOCUSATE SODIUM 100 MG CAPSULE PO SCH (07:58)
[2016-12-30] MEDS: GLUCOSAMINE/CHOND 500/400MG CAPSULE PO SCH ×2 (07:58→19:08)
[2016-12-30] MEDS: ACETAMINOPHEN 325 MG TABLET PO SCH ×3 (07:59→19:08)
[2016-12-30] MEDS: SERTRALINE 25 MG TABLET. PO SCH (07:59)
[2016-12-30] MEDS: DIVALPROEX 125 MG CAP.SPRINK PO SCH ×2 (07:59→15:36)
[2016-12-30] MEDS: QUEtiapine 50 MG TABLET. PO SCH ×2 (07:59→15:36)
--- NOTE | 2016-12-30 13:40 | PN ---
DATE: 12/29/2016 PSYCHIATRIC PROGRESS NOTE This is a late entry, date of service 12/29/2016, covers elements not covered in my initial note. SUBJECTIVE: I met with the patient the evening of 12/29/2016. The patient has been confused, wandering, otherwise pleasant, not aggressive, compliant with the medications, slept hours per nursing report. REVIEW OF SYSTEMS: No CV, , pulmonary, eye, ENT system symptoms on review. Reliability poor. MENTAL STATUS EXAM: Oriented to herself. Otherwise, pleasant, verbal, as I met with her. Insight, judgment, recent and remote memory, attention, concentration, fund of knowledge poor, consistent with her diagnoses mentioned in my initial note. LABORATORY DATA: Reviewed. IMPRESSION: Unchanged from my initial note. PLAN: Continue current psychotropics including the Depakote, check labs and valproic acid level on 12/31/2016, adjust further as clinically indicated. FERNANDA SOOD MD DR: NAOMI/tonya JOB#: [id number] / [id number]
[2016-12-30 15:48] VITALS: BP 134/84
[2016-12-30] MEDS: QUEtiapine 100 MG TABLET. PO SCH (19:08)
[2016-12-30] MEDS: SIMVASTATIN 10 MG TABLET PO SCH (19:08)
--- NOTE | 2016-12-30 21:35 | PDOC ---
Exam Geoff Demential Exam: Geoff Note: Please also refer to the separate dictated note~for this date of service dictated separately.~Patient seen individually. Discussed the patient with Nursing staff reviewed the chart.~Reviewed interim history and current functioning. Reviewed vital signs,~Labs/ Radiology~and current medications noted below. Continue current treatment with the changes noted in the dictated addendum note Assessment: Vital Signs: Vital Signs Date Time Temp Pulse Resp B/P (MAP) Pulse Ox O2 Delivery O2 Flow Rate FiO2 12/30/16 15:48 98.0 73 21 134/84 (101) 94 12/28/16 05:42 Room Air I&O Intake and Output 12/30/16 07:00 Intake Total 960 ml Balance 960 ml Intake Oral 960 ml Current Medications: Meds: Current Medications Lorazepam (Ativan) 0.5 mg PRN Q4HRS PRN PO ANXIETY Last administered on 00:53; Start 12/26/16 at 19:15 Memantine (Namenda) 10 mg BID PO Last administered on 12/30/16 19:08; Start at 21:00 Quetiapine Fumarate (SEROquel) 50 mg BID92 PO Last administered on 12/30/16 15 :36; Start 12/27/16 at 09:00 Quetiapine Fumarate (SEROquel) 100 mg HS PO Last administered on 12/30/16 19: 08; Start 12/26/16 at 21:00 Sertraline HCl (Zoloft) 25 mg DAILY PO Last administered on 12/30/16 07:59; Start 12/27/16 at 09:00 Acetaminophen (Tylenol) 650 mg PRN Q6HRS PRN PO PAIN / TEMP; Start 12/26/16 at 19:15; Stop 12/26/16 at 20:36; Status DC Multi-Ingredient Ointment (Analgesic [place]) 1 [place] PRN QID PRN TP MUSCLE PAIN; Start 12/26/16 at 19:15 Al Hydroxide/Mg Hydroxide (Mylanta Plus Xs) 15 ml PRN AFTMEALHC PRN PO DYSPEPSIA; Start 12/26/16 at 19:15 Magnesium Hydroxide (Milk Of Magnesia) 2,400 mg PRN QHS PRN PO CONSTIPATION; Start 12/26/16 at 19:15 Acetaminophen (Tylenol) 650 mg PRN Q4HRS PRN PO MILD PAIN; Start 12/26/16 at 20 :30 Acetaminophen (Tylenol) 650 mg TID PO Last administered on 12/30/16 19:08; Start 12/26/16 at 21:00 Aspirin (Children'S Aspirin) 81 mg DAILY PO Last administered on 12/30/16 07: 58; Start 12/27/16 at 09:00 Calcium/Vitamin D (Oscal D 500mg/ 200uts) 1 tab DAILY PO Last administered on 07:57; Start 12/27/16 at 09:00 Vitamin D (Vitamin D3) 2,000 unit DAILY PO Last administered on 12/30/16 07:57 ; Start 12/27/16 at 09:00 Docusate Sodium (Colace) 100 mg DAILY PO Last administered on 12/30/16 07:58; Start 12/27/16 at 09:00 Estradiol (Estrace) 1 [place]ol[place] 3X/WEEK VG ; Start 12/27/16 at 09:00; Stop 12/27/16 at 12:08; Status DC Levothyroxine Sodium (Synthroid) 88 mcg DAILY06 PO Last administered on 05:46; Start 12/27/16 at 06:00 Simvastatin (Zocor) 10 mg HS PO Last administered on 12/30/16 19:08; Start at 21:00 Multivitamins/ Minerals (I-Bobby) 1 tab DAILY PO Last administered on 12/30/16 07:57; Start 12/27/16 at 09:00 Non-Formulary Medication 405 mg BID PO ; Start 12/26/16 at 21:00; Stop 12/26/16 at 21:00; Status DC Glucosamine/ Chondroitin (Glucosamine-Chondroitin 500/400mg) 1 cap BID PO Last administered on 12/30/16 19:08; Start 12/26/16 at 21:00 Non-Formulary Medication 30 ml Q4HRS PRN PO indigestion; Start 12/26/16 at 20: 30; Stop 12/26/16 at 20:41; Status DC Pantoprazole Sodium (Protonix) 20 mg DAILYAC PO Last administered on 12/30/16 07:57; Start 12/27/16 at 07:30 Oxybutynin Chloride (Ditropan) 5 mg BID PO Last administered on 12/30/16 19:08 ; Start 12/26/16 at 21:00 Estradiol (Estrace) 1 carolina MoWeFr@2100 VG Last administered on 12/29/16 19:21; Start 12/27/16 at 21:00 Divalproex Sodium (Depakote Sprinkles) 125 mg BID92 PO Last administered on 15:36; Start 12/28/16 at 14:00 Magnesium Chloride (Mag Delay) 128 mg DAILY PO Last administered on 12/30/16 07:58; Start 12/28/16 at 10:45 Albuterol/ Ipratropium (Duoneb) 3 ml PRN QID PRN NEB WHEEZING; Start 12/28/16 at 11:15 Active Scripts Active Reported Zoloft (Sertraline Hcl) 25 Mg Tablet 25 Mg PO DAILY Zocor (Simvastatin) 10 Mg Tablet 10 Mg PO HS Tylenol (Acetaminophen) 325 Mg Tablet 650 Mg PO TID Tylenol (Acetaminophen) 325 Mg Tablet 650 Mg PO Q4HRS PRN Synthroid (Levothyroxine Sodium) 88 Mcg Tablet 88 Mcg PO DAILYAC Seroquel (Quetiapine Fumarate) 50 Mg Tablet 50 Mg PO BID92 Seroquel (Quetiapine Fumarate) 100 Mg Tablet 100 Mg PO HS Prosight Tablet (Beta-Carotene(A) W-C & E/Min) 1 Each Tablet 1 Each PO DAILY Omeprazole 20 Mg Capsule.dr 20 Mg PO DAILY Namenda (Memantine Hcl) 10 Mg Tablet 10 Mg PO BID Alum-Mag Hydroxide-Simeth Liq (Mag Hydrox/Al Hydrox/Simeth) 360 Ml Oral.susp 30 Ml PO Q4HRS PRN Glucosamine & Chondroitin Cap (Glucosa Barriga 2KCL/Chondroitin Barriga) 1 Each Capsule 1 Each PO BID Estrace (Estradiol) 42.5 Gm Cream.appl 1 Gm VG 3X/WEEK Ditropan Xl (Oxybutynin Chloride) 10 Mg Tab.er.24 10 Mg PO DAILY Cranberry (Cranberry Extract) 405 Mg Capsule 405 Mg PO BID Colace (Docusate Sodium) 100 Mg Capsule 100 Mg PO DAILY Vitamin D3 (Cholecalciferol (Vitamin D3)) 1,000 Unit Tablet 2,000 Unit PO Calcium 500 + Vit D 200 Tablet (Calcium Carbonate/Vitamin D3) 1 Each Tablet 1 Each PO DAILY Ativan (Lorazepam) 0.5 Mg Tablet 0.5 Mg PO PRN Q4HRS PRN Aspirin 81 Mg Tab.chew 81 Mg PO DAILY Diagnosis: Problems: (1) Anxiety disorder (2) Dementia, vascular, with depression (3) Dementia, vascular, with delusions (4) Dementia in Alzheimer's disease with depression (5) Dementia in Alzheimer's disease with delusions (6) Impulse control disorder FERNANDA SOOD MD Dec 30, 2016 21:35
[2016-12-31 05:48] VITALS: BP 162/81
[2016-12-31] MEDS: LEVOTHYROXINE 88 MCG TABLET PO SCH (05:49)
[2016-12-31 06:53] LABS: BASO # 0.1 x10^3/uL (0.0-0.2); BASO % 1 % (0-3); EOS # 0.3 x10^3/uL (0.0-0.7); EOS % 4 % (0-3); HEMATOCRIT 37.4 % (36.0-47.0); HEMOGLOBIN 12.7 g/dL (12.0-15.5); LYMPH # 2.3 x10^3/uL (1.0-4.8); LYMPH % 32 % (24-48); MEAN CORPUSCULAR HEMOGLOBIN 33 pg (25-35); MEAN CORPUSCULAR HGB CONC 34 g/dL (31-37); MEAN CORPUSCULAR VOLUME 98 fL (79-100); MONO # 0.8 x10^3/uL (0.0-1.1); MONO % 11 % (0-9); NEUT # 3.7 x10^3uL (1.8-7.7); NEUT % 52 % (31-73); PLATELET COUNT 256 x10^3/uL (140-400); RED CELL DISTRIBUTION WIDTH 13.7 % (11.5-14.5); WHITE BLOOD COUNT 7.2 x10^3/uL (4.0-11.0)
[2016-12-31 06:57] LABS: ALBUMIN 3.3 g/dL (3.4-5.0); ALBUMIN/GLOBULIN RATIO 0.8 (1.0-1.7); ALK PHOS 66 U/L (46-116); ALT (SGPT) 16 U/L (14-59); ANION GAP 10 (6-14); AST (SGOT) 16 U/L (15-37); BLOOD UREA NITROGEN 26 mg/dL (7-20); BUN/CREATININE RATIO 29 (6-20); CALCIUM 8.7 mg/dL (8.5-10.1); CARBON DIOXIDE 27 mmol/L (21-32); CHLORIDE 105 mmol/L (98-107); CREATININE 0.9 mg/dL (0.6-1.0); GLUCOSE 97 mg/dL (70-99); SODIUM 142 mmol/L (136-145); TOTAL BILIRUBIN 0.6 mg/dL (0.2-1.0); TOTAL PROTEIN 7.5 g/dL (6.4-8.2)
[2016-12-31 07:00] LABS: VAL ACID 27 mcg/mL (50-100)
[2016-12-31] MEDS: GLUCOSAMINE/CHOND 500/400MG CAPSULE PO SCH ×2 (09:20→19:46)
[2016-12-31] MEDS: QUEtiapine 50 MG TABLET. PO SCH ×2 (09:20→14:16)
[2016-12-31] MEDS: OXYBUTYNIN CHLORIDE 5 MG TABLET PO SCH ×2 (09:21→19:46)
[2016-12-31] MEDS: DOCUSATE SODIUM 100 MG CAPSULE PO SCH (09:21)
[2016-12-31] MEDS: MULTIVITAMIN I-VITE TABLET. PO SCH (09:21)
[2016-12-31] MEDS: CHOLECALCIFEROL (VITAMIN D3) 1,000 UNIT TABLET PO SCH (09:21)
[2016-12-31] MEDS: PANTOPRAZOLE 20 MG TABLET. PO SCH (09:21)
[2016-12-31] MEDS: SERTRALINE 25 MG TABLET. PO SCH (09:21)
[2016-12-31] MEDS: DIVALPROEX 125 MG CAP.SPRINK PO SCH ×2 (09:21→14:16)
[2016-12-31] MEDS: MAGNESIUM CHLORIDE ER 64 MG TABLET.ER PO SCH (09:21)
[2016-12-31] MEDS: ACETAMINOPHEN 325 MG TABLET PO SCH ×3 (09:21→19:46)
[2016-12-31] MEDS: ASPIRIN 81 MG TAB.CHEW PO SCH (09:21)
[2016-12-31] MEDS: CALCIUM CARB/VIT D3 500/200 TABLET PO SCH (09:21)
[2016-12-31] MEDS: MEMANTINE 10 MG TABLET. PO SCH ×2 (09:21→19:46)
--- NOTE | 2016-12-31 12:06 | PN ---
DATE: 12/30/2016 PSYCHIATRIC PROGRESS NOTE This is a late entry 12/30/2016, covers elements not covered in my initial note. SUBJECTIVE: Per nursing report, the patient had a good day, has been somewhat withdrawn. I met her the evening of 12/30/2016. She did not get up for breakfast. Her daughter visited, she slept 5 hours. REVIEW OF SYSTEMS: No CV, , pulmonary, eye, ENT system symptoms on review. Reliability poor. MENTAL STATUS EXAM: Oriented to herself. Insight, judgment, recent and remote memory, attention, concentration, fund of knowledge poor, consistent with her diagnoses mentioned in my initial note. PLAN: Continue current psychotropics, may need to increase Seroquel and adjust the Depakote if she is aggressive. MAN Carson SOOD MD DR: NAOMI/tonya JOB#: [id number] / [id number]
[2016-12-31 16:18] VITALS: BP 130/65
--- NOTE | 2016-12-31 19:41 | PDOC ---
Exam Geoff Demential Exam: Geoff Note: Please also refer to the separate dictated note~for this date of service dictated separately.~Patient seen individually. Discussed the patient with Nursing staff reviewed the chart.~Reviewed interim history and current functioning. Reviewed vital signs,~Labs/ Radiology~and current medications noted below. Continue current treatment with the changes noted in the dictated addendum note Assessment: Vital Signs: Vital Signs Date Time Temp Pulse Resp B/P (MAP) Pulse Ox O2 Delivery O2 Flow Rate FiO2 12/31/16 16:18 98.5 86 18 130/65 (86) 93 12/28/16 05:42 Room Air I&O Intake and Output 12/31/16 07:00 Intake Total 480 ml Balance 480 ml Intake Oral 480 ml Labs: Laboratory Tests Test 12/31/16 06:13 White Blood Count 7.2 x10^3/uL (4.0-11.0) Red Blood Count 3.80 x10^6/uL (3.50-5.40) Hemoglobin 12.7 g/dL (12.0-15.5) Hematocrit 37.4 % (36.0-47.0) Mean Corpuscular Volume 98 fL (79-100) Mean Corpuscular Hemoglobin 33 pg (25-35) Mean Corpuscular Hemoglobin Concent 34 g/dL (31-37) Red Cell Distribution Width 13.7 % (11.5-14.5) Platelet Count 256 x10^3/uL (140-400) Neutrophils (%) (Auto) 52 % (31-73) Lymphocytes (%) (Auto) 32 % (24-48) Monocytes (%) (Auto) 11 % (0-9) H Eosinophils (%) (Auto) 4 % (0-3) H Basophils (%) (Auto) 1 % (0-3) Neutrophils # (Auto) 3.7 x10^3uL (1.8-7.7) Lymphocytes # (Auto) 2.3 x10^3/uL (1.0-4.8) Monocytes # (Auto) 0.8 x10^3/uL (0.0-1.1) Eosinophils # (Auto) 0.3 x10^3/uL (0.0-0.7) Basophils # (Auto) 0.1 x10^3/uL (0.0-0.2) Sodium Level 142 mmol/L (136-145) Potassium Level 4.0 mmol/L (3.5-5.1) Chloride Level 105 mmol/L (98-107) Carbon Dioxide Level 27 mmol/L (21-32) Anion Gap 10 (6-14) Blood Urea Nitrogen 26 mg/dL (7-20) H Creatinine 0.9 mg/dL (0.6-1.0) Estimated GFR (Cockcroft-Gault) 59.0 BUN/Creatinine Ratio 29 (6-20) H Glucose Level 97 mg/dL (70-99) Calcium Level 8.7 mg/dL (8.5-10.1) Magnesium Level 2.0 mg/dL (1.8-2.4) Total Bilirubin 0.6 mg/dL (0.2-1.0) Aspartate Amino Transferase (AST) 16 U/L (15-37) Alanine Aminotransferase (ALT) 16 U/L (14-59) Alkaline Phosphatase 66 U/L (46-116) Total Protein 7.5 g/dL (6.4-8.2) Albumin 3.3 g/dL (3.4-5.0) L Albumin/Globulin Ratio 0.8 (1.0-1.7) L Valproic Acid Level 27 mcg/mL (50-100) L Valproic Acid Last Dose Date 12/30/16 Valproic Acid Last Dose Time 1400 Current Medications: Meds: Current Medications Lorazepam (Ativan) 0.5 mg PRN Q4HRS PRN PO ANXIETY Last administered on 00:53; Start 12/26/16 at 19:15 Memantine (Namenda) 10 mg BID PO Last administered on 12/31/16 09:21; Start at 21:00 Quetiapine Fumarate (SEROquel) 50 mg BID92 PO Last administered on 12/31/16 14 :16; Start 12/27/16 at 09:00 Quetiapine Fumarate (SEROquel) 100 mg HS PO Last administered on 12/30/16 19: 08; Start 12/26/16 at 21:00 Sertraline HCl (Zoloft) 25 mg DAILY PO Last administered on 12/31/16 09:21; Start 12/27/16 at 09:00 Acetaminophen (Tylenol) 650 mg PRN Q6HRS PRN PO PAIN / TEMP; Start 12/26/16 at 19:15; Stop 12/26/16 at 20:36; Status DC Multi-Ingredient Ointment (Analgesic [place]) 1 [place] PRN QID PRN TP MUSCLE PAIN; Start 12/26/16 at 19:15 Al Hydroxide/Mg Hydroxide (Mylanta Plus Xs) 15 ml PRN AFTMEALHC PRN PO DYSPEPSIA; Start 12/26/16 at 19:15 Magnesium Hydroxide (Milk Of Magnesia) 2,400 mg PRN QHS PRN PO CONSTIPATION; Start 12/26/16 at 19:15 Acetaminophen (Tylenol) 650 mg PRN Q4HRS PRN PO MILD PAIN; Start 12/26/16 at 20 :30 Acetaminophen (Tylenol) 650 mg TID PO Last administered on 12/31/16 14:16; Start 12/26/16 at 21:00 Aspirin (Children'S Aspirin) 81 mg DAILY PO Last administered on 12/31/16 09: 21; Start 12/27/16 at 09:00 Calcium/Vitamin D (Oscal D 500mg/ 200uts) 1 tab DAILY PO Last administered on 09:21; Start 12/27/16 at 09:00 Vitamin D (Vitamin D3) 2,000 unit DAILY PO Last administered on 12/31/16 09:21 ; Start 12/27/16 at 09:00 Docusate Sodium (Colace) 100 mg DAILY PO Last administered on 12/31/16 09:21; Start 12/27/16 at 09:00 Estradiol (Estrace) 1 [place] 3X/WEEK VG ; Start 12/27/16 at 09:00; Stop 12/27/16 at 12:08; Status DC Levothyroxine Sodium (Synthroid) 88 mcg DAILY06 PO Last administered on 05:49; Start 12/27/16 at 06:00 Simvastatin (Zocor) 10 mg HS PO Last administered on 12/30/16 19:08; Start at 21:00 Multivitamins/ Minerals (I-Bobby) 1 tab DAILY PO Last administered on 12/31/16 09:21; Start 12/27/16 at 09:00 Non-Formulary Medication 405 mg BID PO ; Start 12/26/16 at 21:00; Stop 12/26/16 at 21:00; Status DC Glucosamine/ Chondroitin (Glucosamine-Chondroitin 500/400mg) 1 cap BID PO Last administered on 12/31/16 09:20; Start 12/26/16 at 21:00 Non-Formulary Medication 30 ml Q4HRS PRN PO indigestion; Start 12/26/16 at 20: 30; Stop 12/26/16 at 20:41; Status DC Pantoprazole Sodium (Protonix) 20 mg DAILYAC PO Last administered on 12/31/16 09:21; Start 12/27/16 at 07:30 Oxybutynin Chloride (Ditropan) 5 mg BID PO Last administered on 12/31/16 09:21 ; Start 12/26/16 at 21:00 Estradiol (Estrace) 1 carolina MoWeFr@2100 VG Last administered on 12/29/16 19:21; Start 12/27/16 at 21:00 Divalproex Sodium (Depakote Sprinkles) 125 mg BID92 PO Last administered on 14:16; Start 12/28/16 at 14:00 Magnesium Chloride (Mag Delay) 128 mg DAILY PO Last administered on 12/31/16 09:21; Start 12/28/16 at 10:45 Albuterol/ Ipratropium (Duoneb) 3 ml PRN QID PRN NEB WHEEZING; Start 12/28/16 at 11:15 Active Scripts Active Reported Zoloft (Sertraline Hcl) 25 Mg Tablet 25 Mg PO DAILY Zocor (Simvastatin) 10 Mg Tablet 10 Mg PO HS Tylenol (Acetaminophen) 325 Mg Tablet 650 Mg PO TID Tylenol (Acetaminophen) 325 Mg Tablet 650 Mg PO Q4HRS PRN Synthroid (Levothyroxine Sodium) 88 Mcg Tablet 88 Mcg PO DAILYAC Seroquel (Quetiapine Fumarate) 50 Mg Tablet 50 Mg PO BID92 Seroquel (Quetiapine Fumarate) 100 Mg Tablet 100 Mg PO HS Prosight Tablet (Beta-Carotene(A) W-C & E/Min) 1 Each Tablet 1 Each PO DAILY Omeprazole 20 Mg Capsule.dr 20 Mg PO DAILY Namenda (Memantine Hcl) 10 Mg Tablet 10 Mg PO BID Alum-Mag Hydroxide-Simeth Liq (Mag Hydrox/Al Hydrox/Simeth) 360 Ml Oral.susp 30 Ml PO Q4HRS PRN Glucosamine & Chondroitin Cap (Glucosa Barriga 2KCL/Chondroitin Barriga) 1 Each Capsule 1 Each PO BID Estrace (Estradiol) 42.5 Gm Cream.appl 1 Gm VG 3X/WEEK Ditropan Xl (Oxybutynin Chloride) 10 Mg Tab.er.24 10 Mg PO DAILY Cranberry (Cranberry Extract) 405 Mg Capsule 405 Mg PO BID Colace (Docusate Sodium) 100 Mg Capsule 100 Mg PO DAILY Vitamin D3 (Cholecalciferol (Vitamin D3)) 1,000 Unit Tablet 2,000 Unit PO Calcium 500 + Vit D 200 Tablet (Calcium Carbonate/Vitamin D3) 1 Each Tablet 1 Each PO DAILY Ativan (Lorazepam) 0.5 Mg Tablet 0.5 Mg PO PRN Q4HRS PRN Aspirin 81 Mg Tab.chew 81 Mg PO DAILY Diagnosis: Problems: (1) Anxiety disorder (2) Dementia, vascular, with depression (3) Dementia, vascular, with delusions (4) Dementia in Alzheimer's disease with depression (5) Dementia in Alzheimer's disease with delusions (6) Impulse control disorder FERNANDA SOOD MD Dec 31, 2016 19:41
[2016-12-31] MEDS: SIMVASTATIN 10 MG TABLET PO SCH (19:46)
[2016-12-31] MEDS: QUEtiapine 100 MG TABLET. PO SCH (19:46)
[2017-01-01] MEDS: LEVOTHYROXINE 88 MCG TABLET PO SCH (05:45)
[2017-01-01 06:04] VITALS: BP 169/67
[2017-01-01] MEDS: DIVALPROEX 125 MG CAP.SPRINK PO SCH ×2 (07:29→13:27)
[2017-01-01] MEDS: PANTOPRAZOLE 20 MG TABLET. PO SCH (07:29)
[2017-01-01] MEDS: OXYBUTYNIN CHLORIDE 5 MG TABLET PO SCH ×2 (07:29→19:52)
[2017-01-01] MEDS: ASPIRIN 81 MG TAB.CHEW PO SCH (07:29)
[2017-01-01] MEDS: DOCUSATE SODIUM 100 MG CAPSULE PO SCH (07:29)
[2017-01-01] MEDS: MEMANTINE 10 MG TABLET. PO SCH ×2 (07:30→19:52)
[2017-01-01] MEDS: MAGNESIUM CHLORIDE ER 64 MG TABLET.ER PO SCH (07:30)
[2017-01-01] MEDS: GLUCOSAMINE/CHOND 500/400MG CAPSULE PO SCH ×2 (07:30→19:52)
[2017-01-01] MEDS: ACETAMINOPHEN 325 MG TABLET PO SCH ×3 (07:30→19:52)
[2017-01-01] MEDS: CHOLECALCIFEROL (VITAMIN D3) 1,000 UNIT TABLET PO SCH (07:30)
[2017-01-01] MEDS: MULTIVITAMIN I-VITE TABLET. PO SCH (07:30)
[2017-01-01] MEDS: CALCIUM CARB/VIT D3 500/200 TABLET PO SCH (07:31)
[2017-01-01] MEDS: QUEtiapine 50 MG TABLET. PO SCH ×2 (07:31→13:27)
[2017-01-01] MEDS: SERTRALINE 25 MG TABLET. PO SCH (07:31)
[2017-01-01 15:56] VITALS: BP 109/65
--- NOTE | 2017-01-01 19:46 | PDOC ---
Exam Geoff Demential Exam: Geoff Note: Please also refer to the separate dictated note~for this date of service dictated separately.~Patient seen individually. Discussed the patient with Nursing staff reviewed the chart.~Reviewed interim history and current functioning. Reviewed vital signs,~Labs/ Radiology~and current medications noted below. Continue current treatment with the changes noted in the dictated addendum note Assessment: Vital Signs: Vital Signs Date Time Temp Pulse Resp B/P (MAP) Pulse Ox O2 Delivery O2 Flow Rate FiO2 01/01/17 15:56 98.1 80 18 109/65 (80) 91 12/28/16 05:42 Room Air I&O Intake and Output 01/01/17 07:00 Intake Total 600 ml Balance 600 ml Intake Oral 600 ml Current Medications: Meds: Current Medications Lorazepam (Ativan) 0.5 mg PRN Q4HRS PRN PO ANXIETY Last administered on 00:53; Start 12/26/16 at 19:15 Memantine (Namenda) 10 mg BID PO Last administered on 01/01/17 07:30; Start at 21:00 Quetiapine Fumarate (SEROquel) 50 mg BID92 PO Last administered on 01/01/17 13 :27; Start 12/27/16 at 09:00 Quetiapine Fumarate (SEROquel) 100 mg HS PO Last administered on 12/31/16 19: 46; Start 12/26/16 at 21:00 Sertraline HCl (Zoloft) 25 mg DAILY PO Last administered on 01/01/17 07:31; Start 12/27/16 at 09:00; Stop 01/01/17 at 18:02; Status DC Acetaminophen (Tylenol) 650 mg PRN Q6HRS PRN PO PAIN / TEMP; Start 12/26/16 at 19:15; Stop 12/26/16 at 20:36; Status DC Multi-Ingredient Ointment (Analgesic [place]) 1 [place] PRN QID PRN TP MUSCLE PAIN; Start 12/26/16 at 19:15 Al Hydroxide/Mg Hydroxide (Mylanta Plus Xs) 15 ml PRN AFTMEALHC PRN PO DYSPEPSIA; Start 12/26/16 at 19:15 Magnesium Hydroxide (Milk Of Magnesia) 2,400 mg PRN QHS PRN PO CONSTIPATION; Start 12/26/16 at 19:15 Acetaminophen (Tylenol) 650 mg PRN Q4HRS PRN PO MILD PAIN; Start 12/26/16 at 20 :30 Acetaminophen (Tylenol) 650 mg TID PO Last administered on 01/01/17 13:27; Start 12/26/16 at 21:00 Aspirin (Children'S Aspirin) 81 mg DAILY PO Last administered on 01/01/17 07: 29; Start 12/27/16 at 09:00 Calcium/Vitamin D (Oscal D 500mg/ 200uts) 1 tab DAILY PO Last administered on 07:31; Start 12/27/16 at 09:00 Vitamin D (Vitamin D3) 2,000 unit DAILY PO Last administered on 01/01/17 07:30 ; Start 12/27/16 at 09:00 Docusate Sodium (Colace) 100 mg DAILY PO Last administered on 01/01/17 07:29; Start 12/27/16 at 09:00 Estradiol (Estrace) 1 [place]ol[place] 3X/WEEK VG ; Start 12/27/16 at 09:00; Stop 12/27/16 at 12:08; Status DC Levothyroxine Sodium (Synthroid) 88 mcg DAILY06 PO Last administered on 05:45; Start 12/27/16 at 06:00 Simvastatin (Zocor) 10 mg HS PO Last administered on 12/31/16 19:46; Start at 21:00 Multivitamins/ Minerals (I-Bobby) 1 tab DAILY PO Last administered on 01/01/17 07:30; Start 12/27/16 at 09:00 Non-Formulary Medication 405 mg BID PO ; Start 12/26/16 at 21:00; Stop 12/26/16 at 21:00; Status DC Glucosamine/ Chondroitin (Glucosamine-Chondroitin 500/400mg) 1 cap BID PO Last administered on 01/01/17 07:30; Start 12/26/16 at 21:00 Non-Formulary Medication 30 ml Q4HRS PRN PO indigestion; Start 12/26/16 at 20: 30; Stop 12/26/16 at 20:41; Status DC Pantoprazole Sodium (Protonix) 20 mg DAILYAC PO Last administered on 01/01/17 07:29; Start 12/27/16 at 07:30 Oxybutynin Chloride (Ditropan) 5 mg BID PO Last administered on 01/01/17 07:29 ; Start 12/26/16 at 21:00 Estradiol (Estrace) 1 carolina MoWeFr@2100 VG Last administered on 12/29/16 19:21; Start 12/27/16 at 21:00 Divalproex Sodium (Depakote Sprinkles) 125 mg BID92 PO Last administered on 13:27; Start 12/28/16 at 14:00 Magnesium Chloride (Mag Delay) 128 mg DAILY PO Last administered on 01/01/17 07:30; Start 12/28/16 at 10:45 Albuterol/ Ipratropium (Duoneb) 3 ml PRN QID PRN NEB WHEEZING; Start 12/28/16 at 11:15 Sertraline HCl (Zoloft) 50 mg DAILY PO ; Start 01/02/17 at 09:00 Mirtazapine (Remeron) 7.5 mg QHS PO ; Start 01/01/17 at 21:00 Active Scripts Active Reported Zoloft (Sertraline Hcl) 25 Mg Tablet 25 Mg PO DAILY Zocor (Simvastatin) 10 Mg Tablet 10 Mg PO HS Tylenol (Acetaminophen) 325 Mg Tablet 650 Mg PO TID Tylenol (Acetaminophen) 325 Mg Tablet 650 Mg PO Q4HRS PRN Synthroid (Levothyroxine Sodium) 88 Mcg Tablet 88 Mcg PO DAILYAC Seroquel (Quetiapine Fumarate) 50 Mg Tablet 50 Mg PO BID92 Seroquel (Quetiapine Fumarate) 100 Mg Tablet 100 Mg PO HS Prosight Tablet (Beta-Carotene(A) W-C & E/Min) 1 Each Tablet 1 Each PO DAILY Omeprazole 20 Mg Capsule.dr 20 Mg PO DAILY Namenda (Memantine Hcl) 10 Mg Tablet 10 Mg PO BID Alum-Mag Hydroxide-Simeth Liq (Mag Hydrox/Al Hydrox/Simeth) 360 Ml Oral.susp 30 Ml PO Q4HRS PRN Glucosamine & Chondroitin Cap (Glucosa Barriga 2KCL/Chondroitin Barriga) 1 Each Capsule 1 Each PO BID Estrace (Estradiol) 42.5 Gm Cream.appl 1 Gm VG 3X/WEEK Ditropan Xl (Oxybutynin Chloride) 10 Mg Tab.er.24 10 Mg PO DAILY Cranberry (Cranberry Extract) 405 Mg Capsule 405 Mg PO BID Colace (Docusate Sodium) 100 Mg Capsule 100 Mg PO DAILY Vitamin D3 (Cholecalciferol (Vitamin D3)) 1,000 Unit Tablet 2,000 Unit PO Calcium 500 + Vit D 200 Tablet (Calcium Carbonate/Vitamin D3) 1 Each Tablet 1 Each PO DAILY Ativan (Lorazepam) 0.5 Mg Tablet 0.5 Mg PO PRN Q4HRS PRN Aspirin 81 Mg Tab.chew 81 Mg PO DAILY Diagnosis: Problems: (1) Anxiety disorder (2) Dementia, vascular, with depression (3) Dementia, vascular, with delusions (4) Dementia in Alzheimer's disease with depression (5) Dementia in Alzheimer's disease with delusions (6) Impulse control disorder FERNANDA SOOD MD Jan 01, 2017 19:46
[2017-01-01] MEDS: QUEtiapine 100 MG TABLET. PO SCH (19:52)
[2017-01-01] MEDS: SIMVASTATIN 10 MG TABLET PO SCH (19:52)
[2017-01-01] MEDS: MIRTAZAPINE 7.5 MG TABLET. PO SCH (19:54)
[2017-01-01] MEDS: ESTRADIOL 0.01% VAGINAL CREAM 42.5GM TUBE. VG SCH (20:42)
--- NOTE | 2017-01-02 00:47 | PN ---
DATE: 12/31/2016 This late entry 12/31/2016, covers elements not covered in my initial note. SUBJECTIVE: The patient was seen individually on the evening of 12/31/2016. Per nursing report, she has been calm, compliant with medications and assessment, withdrawn to her room most of the day, out for meals. REVIEW OF SYSTEMS: No CV, , eye, ENT or pulmonary system symptoms on review. Reliability poor. MENTAL STATUS EXAM: Oriented to herself. Insight, judgment, recent and remote memory, attention, concentration, fund of knowledge poor, consistent with her diagnosis. LABORATORY DATA: Reviewed. IMPRESSION: Unchanged from initial note major neurocognitive disorder, Alzheimer, vascular with depression, delusion, behavioral disturbance. PLAN: Continue current psychotropics. Valproic acid level is 27 on Depakote 125 mg twice a day despite being subtherapeutic if clinically adequate, rest of the labs are unremarkable. Maintain Namenda 10 b.i.d., Seroquel 100 at bedtime, 50 b.i.d., Zoloft 25 mg a day, will increase to 50 mg a day. Adjust further as clinically indicated. MAN Carson SOOD MD DR: NAOMI/tonya JOB#: [id number] / [id number]
[2017-01-02 06:26] VITALS: BP 185/98
[2017-01-02] MEDS: LEVOTHYROXINE 88 MCG TABLET PO SCH (06:34)
[2017-01-02] MEDS: QUEtiapine 50 MG TABLET. PO SCH ×2 (09:33→14:24)
[2017-01-02] MEDS: MEMANTINE 10 MG TABLET. PO SCH ×2 (09:33→20:01)
[2017-01-02] MEDS: ASPIRIN 81 MG TAB.CHEW PO SCH (09:33)
[2017-01-02] MEDS: CHOLECALCIFEROL (VITAMIN D3) 1,000 UNIT TABLET PO SCH (09:33)
[2017-01-02] MEDS: DOCUSATE SODIUM 100 MG CAPSULE PO SCH (09:33)
[2017-01-02] MEDS: CALCIUM CARB/VIT D3 500/200 TABLET PO SCH (09:33)
[2017-01-02] MEDS: OXYBUTYNIN CHLORIDE 5 MG TABLET PO SCH ×2 (09:33→20:01)
[2017-01-02] MEDS: DIVALPROEX 125 MG CAP.SPRINK PO SCH ×2 (09:33→14:24)
[2017-01-02] MEDS: MAGNESIUM CHLORIDE ER 64 MG TABLET.ER PO SCH (09:33)
[2017-01-02] MEDS: ACETAMINOPHEN 325 MG TABLET PO SCH ×3 (09:34→20:01)
[2017-01-02] MEDS: GLUCOSAMINE/CHOND 500/400MG CAPSULE PO SCH ×2 (09:34→20:01)
[2017-01-02] MEDS: MULTIVITAMIN I-VITE TABLET. PO SCH (09:34)
[2017-01-02] MEDS: SERTRALINE 50 MG TABLET. PO SCH (09:35)
[2017-01-02] MEDS: PANTOPRAZOLE 20 MG TABLET. PO SCH (09:35)
[2017-01-02 16:14] VITALS: BP 105/53
--- NOTE | 2017-01-02 19:51 | PDOC ---
Exam Geoff Demential Exam: Geoff Note: Please also refer to the separate dictated note~for this date of service dictated separately.~Patient seen individually. Discussed the patient with Nursing staff reviewed the chart.~Reviewed interim history and current functioning. Reviewed vital signs,~Labs/ Radiology~and current medications noted below. Continue current treatment with the changes noted in the dictated addendum note Assessment: Vital Signs: Vital Signs Date Time Temp Pulse Resp B/P (MAP) Pulse Ox O2 Delivery O2 Flow Rate FiO2 01/02/17 16:14 98.0 77 16 105/53 (70) 93 12/28/16 05:42 Room Air I&O Intake and Output 01/02/17 07:00 Intake Total 360 ml Balance 360 ml Intake Oral 360 ml Current Medications: Meds: Current Medications Lorazepam (Ativan) 0.5 mg PRN Q4HRS PRN PO ANXIETY Last administered on 00:53; Start 12/26/16 at 19:15 Memantine (Namenda) 10 mg BID PO Last administered on 01/02/17 09:33; Start at 21:00 Quetiapine Fumarate (SEROquel) 50 mg BID92 PO Last administered on 01/02/17 14: 24; Start 12/27/16 at 09:00 Quetiapine Fumarate (SEROquel) 100 mg HS PO Last administered on 01/01/17 19: 52; Start 12/26/16 at 21:00 Sertraline HCl (Zoloft) 25 mg DAILY PO Last administered on 01/01/17 07:31; Start 12/27/16 at 09:00; Stop 01/01/17 at 18:02; Status DC Acetaminophen (Tylenol) 650 mg PRN Q6HRS PRN PO PAIN / TEMP; Start 12/26/16 at 19:15; Stop 12/26/16 at 20:36; Status DC Multi-Ingredient Ointment (Analgesic [place]) 1 [place] PRN QID PRN TP MUSCLE PAIN; Start 12/26/16 at 19:15 Al Hydroxide/Mg Hydroxide (Mylanta Plus Xs) 15 ml PRN AFTMEALHC PRN PO DYSPEPSIA; Start 12/26/16 at 19:15 Magnesium Hydroxide (Milk Of Magnesia) 2,400 mg PRN QHS PRN PO CONSTIPATION; Start 12/26/16 at 19:15 Acetaminophen (Tylenol) 650 mg PRN Q4HRS PRN PO MILD PAIN; Start 12/26/16 at 20 :30 Acetaminophen (Tylenol) 650 mg TID PO Last administered on 01/02/17 14:24; Start 12/26/16 at 21:00 Aspirin (Children'S Aspirin) 81 mg DAILY PO Last administered on 01/02/17 09:33 ; Start 12/27/16 at 09:00 Calcium/Vitamin D (Oscal D 500mg/ 200uts) 1 tab DAILY PO Last administered on 09:33; Start 12/27/16 at 09:00 Vitamin D (Vitamin D3) 2,000 unit DAILY PO Last administered on 01/02/17 09:33 ; Start 12/27/16 at 09:00 Docusate Sodium (Colace) 100 mg DAILY PO Last administered on 01/02/17 09:33; Start 12/27/16 at 09:00 Estradiol (Estrace) 1 [place] 3X/WEEK VG ; Start 12/27/16 at 09:00; Stop 12/27/16 at 12:08; Status DC Levothyroxine Sodium (Synthroid) 88 mcg DAILY06 PO Last administered on 06:34; Start 12/27/16 at 06:00 Simvastatin (Zocor) 10 mg HS PO Last administered on 01/01/17 19:52; Start at 21:00 Multivitamins/ Minerals (I-Bobby) 1 tab DAILY PO Last administered on 01/02/17 09:34; Start 12/27/16 at 09:00 Non-Formulary Medication 405 mg BID PO ; Start 12/26/16 at 21:00; Stop 12/26/16 at 21:00; Status DC Glucosamine/ Chondroitin (Glucosamine-Chondroitin 500/400mg) 1 cap BID PO Last administered on 01/02/17 09:34; Start 12/26/16 at 21:00 Non-Formulary Medication 30 ml Q4HRS PRN PO indigestion; Start 12/26/16 at 20: 30; Stop 12/26/16 at 20:41; Status DC Pantoprazole Sodium (Protonix) 20 mg DAILYAC PO Last administered on 01/02/17 09:35; Start 12/27/16 at 07:30 Oxybutynin Chloride (Ditropan) 5 mg BID PO Last administered on 01/02/17 09:33 ; Start 12/26/16 at 21:00 Estradiol (Estrace) 1 carol[place] MoWeFr@2100 VG Last administered on 12/29/16 19:21; Start 12/27/16 at 21:00 Divalproex Sodium (Depakote Sprinkles) 125 mg BID92 PO Last administered on 01/02 14:24; Start 12/28/16 at 14:00 Magnesium Chloride (Mag Delay) 128 mg DAILY PO Last administered on 01/02/17 09 :33; Start 12/28/16 at 10:45 Albuterol/ Ipratropium (Duoneb) 3 ml PRN QID PRN NEB WHEEZING; Start 12/28/16 at 11:15 Sertraline HCl (Zoloft) 50 mg DAILY PO Last administered on 01/02/17 09:35; Start 01/02/17 at 09:00 Mirtazapine (Remeron) 7.5 mg QHS PO Last administered on 01/01/17 19:54; Start 01/01/17 at 21:00 Active Scripts Active Reported Zoloft (Sertraline Hcl) 25 Mg Tablet 25 Mg PO DAILY Zocor (Simvastatin) 10 Mg Tablet 10 Mg PO HS Tylenol (Acetaminophen) 325 Mg Tablet 650 Mg PO TID Tylenol (Acetaminophen) 325 Mg Tablet 650 Mg PO Q4HRS PRN Synthroid (Levothyroxine Sodium) 88 Mcg Tablet 88 Mcg PO DAILYAC Seroquel (Quetiapine Fumarate) 50 Mg Tablet 50 Mg PO BID92 Seroquel (Quetiapine Fumarate) 100 Mg Tablet 100 Mg PO HS Prosight Tablet (Beta-Carotene(A) W-C & E/Min) 1 Each Tablet 1 Each PO DAILY Omeprazole 20 Mg Capsule.dr 20 Mg PO DAILY Namenda (Memantine Hcl) 10 Mg Tablet 10 Mg PO BID Alum-Mag Hydroxide-Simeth Liq (Mag Hydrox/Al Hydrox/Simeth) 360 Ml Oral.susp 30 Ml PO Q4HRS PRN Glucosamine & Chondroitin Cap (Glucosa Barriga 2KCL/Chondroitin Barriga) 1 Each Capsule 1 Each PO BID Estrace (Estradiol) 42.5 Gm Cream.appl 1 Gm VG 3X/WEEK Ditropan Xl (Oxybutynin Chloride) 10 Mg Tab.er.24 10 Mg PO DAILY Cranberry (Cranberry Extract) 405 Mg Capsule 405 Mg PO BID Colace (Docusate Sodium) 100 Mg Capsule 100 Mg PO DAILY Vitamin D3 (Cholecalciferol (Vitamin D3)) 1,000 Unit Tablet 2,000 Unit PO Calcium 500 + Vit D 200 Tablet (Calcium Carbonate/Vitamin D3) 1 Each Tablet 1 Each PO DAILY Ativan (Lorazepam) 0.5 Mg Tablet 0.5 Mg PO PRN Q4HRS PRN Aspirin 81 Mg Tab.chew 81 Mg PO DAILY Diagnosis: Problems: (1) Anxiety disorder (2) Dementia, vascular, with depression (3) Dementia, vascular, with delusions (4) Dementia in Alzheimer's disease with depression (5) Dementia in Alzheimer's disease with delusions (6) Impulse control disorder FERNANDA SOOD MD Jan 02, 2017 19:51
[2017-01-02] MEDS: QUEtiapine 100 MG TABLET. PO SCH (20:01)
[2017-01-02] MEDS: MIRTAZAPINE 7.5 MG TABLET. PO SCH (20:01)
[2017-01-02] MEDS: SIMVASTATIN 10 MG TABLET PO SCH (20:01)
--- NOTE | 2017-01-02 23:43 | PN ---
DATE: 01/01/2017 This late entry on 01/01/2017, covers elements not covered in my initial note on 01/01/2017. SUBJECTIVE: I met with the patient evening of 01/01/2017. Per nursing report, the patient remains confused, but behaviorally is doing better, less agitated, less paranoid. She is somewhat withdrawn, spends time in her room, slept 4-1/2 hours previous night. REVIEW OF SYSTEMS: No CV, , pulmonary, eye, ENT system symptoms on review. Reliability poor. MENTAL STATUS EXAM: Oriented to herself. Insight, judgment, recent and remote memory, attention, concentration, fund of knowledge poor, consistent with her diagnosis mentioned in my initial note. PLAN: We will start Remeron 7.5 mg p.o. at bedtime. Continue Zoloft 50 mg a day, Depakote 125 mg twice a day, level is 27 despite being subtherapeutic, is clinically adequate for now. Ativan as p.r.n., Namenda 10 b.i.d., Seroquel 50 b.i.d. 100 at bedtime. Adjust further as clinically indicated. FERNANDA SOOD MD DR: NAOMI/tonya JOB#: [id number] / [id number]
[2017-01-03 05:48] VITALS: BP 185/66
[2017-01-03] MEDS: LEVOTHYROXINE 88 MCG TABLET PO SCH (06:16)
[2017-01-03] MEDS: SERTRALINE 50 MG TABLET. PO SCH (08:16)
[2017-01-03] MEDS: QUEtiapine 50 MG TABLET. PO SCH ×2 (08:16→14:08)
[2017-01-03] MEDS: PANTOPRAZOLE 20 MG TABLET. PO SCH (08:16)
[2017-01-03] MEDS: ASPIRIN 81 MG TAB.CHEW PO SCH (08:16)
[2017-01-03] MEDS: CALCIUM CARB/VIT D3 500/200 TABLET PO SCH (08:16)
[2017-01-03] MEDS: ACETAMINOPHEN 325 MG TABLET PO SCH ×3 (08:16→19:32)
[2017-01-03] MEDS: DIVALPROEX 125 MG CAP.SPRINK PO SCH ×2 (08:16→14:08)
[2017-01-03] MEDS: OXYBUTYNIN CHLORIDE 5 MG TABLET PO SCH ×2 (08:16→19:32)
[2017-01-03] MEDS: MEMANTINE 10 MG TABLET. PO SCH ×2 (08:16→19:32)
[2017-01-03] MEDS: DOCUSATE SODIUM 100 MG CAPSULE PO SCH (08:17)
[2017-01-03] MEDS: CHOLECALCIFEROL (VITAMIN D3) 1,000 UNIT TABLET PO SCH (08:17)
[2017-01-03] MEDS: MULTIVITAMIN I-VITE TABLET. PO SCH (08:17)
[2017-01-03] MEDS: GLUCOSAMINE/CHOND 500/400MG CAPSULE PO SCH ×2 (08:17→19:32)
[2017-01-03] MEDS: MAGNESIUM CHLORIDE ER 64 MG TABLET.ER PO SCH (08:17)
[2017-01-03 16:19] VITALS: BP 151/68
[2017-01-03] MEDS: SIMVASTATIN 10 MG TABLET PO SCH (19:32)
[2017-01-03] MEDS: MIRTAZAPINE 7.5 MG TABLET. PO SCH (19:32)
[2017-01-03] MEDS: ESTRADIOL 0.01% VAGINAL CREAM 42.5GM TUBE. VG SCH (19:32)
[2017-01-03] MEDS: QUEtiapine 100 MG TABLET. PO SCH (19:32)
--- NOTE | 2017-01-03 19:38 | PDOC ---
Exam Geoff Demential Exam: Geoff Note: Please also refer to the separate dictated note~for this date of service dictated separately.~Patient seen individually. Discussed the patient with Nursing staff reviewed the chart.~Reviewed interim history and current functioning. Reviewed vital signs,~Labs/ Radiology~and current medications noted below. Continue current treatment with the changes noted in the dictated addendum note Assessment: Vital Signs: Vital Signs Date Time Temp Pulse Resp B/P (MAP) Pulse Ox O2 Delivery O2 Flow Rate FiO2 01/03/17 16:19 97.2 73 20 151/68 (95) 92 01/03/17 05:48 Room Air I&O Intake and Output 01/03/17 07:00 Intake Total 480 ml Balance 480 ml Intake Oral 480 ml # Voids 3 Current Medications: Meds: Current Medications Lorazepam (Ativan) 0.5 mg PRN Q4HRS PRN PO ANXIETY Last administered on 00:53; Start 12/26/16 at 19:15 Memantine (Namenda) 10 mg BID PO Last administered on 01/03/17 19:32; Start at 21:00 Quetiapine Fumarate (SEROquel) 50 mg BID92 PO Last administered on 01/03/17 14: 08; Start 12/27/16 at 09:00 Quetiapine Fumarate (SEROquel) 100 mg HS PO Last administered on 01/03/17 19:32 ; Start 12/26/16 at 21:00 Sertraline HCl (Zoloft) 25 mg DAILY PO Last administered on 01/01/17 07:31; Start 12/27/16 at 09:00; Stop 01/01/17 at 18:02; Status DC Acetaminophen (Tylenol) 650 mg PRN Q6HRS PRN PO PAIN / TEMP; Start 12/26/16 at 19:15; Stop 12/26/16 at 20:36; Status DC Multi-Ingredient Ointment (Analgesic [place]) 1 [place]olina PRN QID PRN TP MUSCLE PAIN; Start 12/26/16 at 19:15 Al Hydroxide/Mg Hydroxide (Mylanta Plus Xs) 15 ml PRN AFTMEALHC PRN PO DYSPEPSIA; Start 12/26/16 at 19:15 Magnesium Hydroxide (Milk Of Magnesia) 2,400 mg PRN QHS PRN PO CONSTIPATION; Start 12/26/16 at 19:15 Acetaminophen (Tylenol) 650 mg PRN Q4HRS PRN PO MILD PAIN; Start 12/26/16 at 20 :30 Acetaminophen (Tylenol) 650 mg TID PO Last administered on 01/03/17 19:32; Start 12/26/16 at 21:00 Aspirin (Children'S Aspirin) 81 mg DAILY PO Last administered on 01/03/17 08:16 ; Start 12/27/16 at 09:00 Calcium/Vitamin D (Oscal D 500mg/ 200uts) 1 tab DAILY PO Last administered on 08:16; Start 12/27/16 at 09:00 Vitamin D (Vitamin D3) 2,000 unit DAILY PO Last administered on 01/03/17 08:17 ; Start 12/27/16 at 09:00 Docusate Sodium (Colace) 100 mg DAILY PO Last administered on 01/03/17 08:17; Start 12/27/16 at 09:00 Estradiol (Estrace) 1 carolina 3X/WEEK VG ; Start 12/27/16 at 09:00; Stop 12/27/16 at 12:08; Status DC Levothyroxine Sodium (Synthroid) 88 mcg DAILY06 PO Last administered on 06:16; Start 12/27/16 at 06:00 Simvastatin (Zocor) 10 mg HS PO Last administered on 01/03/17 19:32; Start at 21:00 Multivitamins/ Minerals (I-Bobby) 1 tab DAILY PO Last administered on 01/03/17 08:17; Start 12/27/16 at 09:00 Non-Formulary Medication 405 mg BID PO ; Start 12/26/16 at 21:00; Stop 12/26/16 at 21:00; Status DC Glucosamine/ Chondroitin (Glucosamine-Chondroitin 500/400mg) 1 cap BID PO Last administered on 01/03/17 19:32; Start 12/26/16 at 21:00 Non-Formulary Medication 30 ml Q4HRS PRN PO indigestion; Start 12/26/16 at 20: 30; Stop 12/26/16 at 20:41; Status DC Pantoprazole Sodium (Protonix) 20 mg DAILYAC PO Last administered on 01/03/17 08:16; Start 12/27/16 at 07:30 Oxybutynin Chloride (Ditropan) 5 mg BID PO Last administered on 01/03/17 19:32 ; Start 12/26/16 at 21:00 Estradiol (Estrace) 1 carolina MoWeFr@2100 VG Last administered on 12/29/16 19:21; Start 12/27/16 at 21:00 Divalproex Sodium (Depakote Sprinkles) 125 mg BID92 PO Last administered on 01/03 14:08; Start 12/28/16 at 14:00 Magnesium Chloride (Mag Delay) 128 mg DAILY PO Last administered on 01/03/17 08 :17; Start 12/28/16 at 10:45 Albuterol/ Ipratropium (Duoneb) 3 ml PRN QID PRN NEB WHEEZING; Start 12/28/16 at 11:15 Sertraline HCl (Zoloft) 50 mg DAILY PO Last administered on 01/03/17 08:16; Start 01/02/17 at 09:00 Mirtazapine (Remeron) 7.5 mg QHS PO Last administered on 01/03/17 19:32; Start 01/01/17 at 21:00 Active Scripts Active Reported Zoloft (Sertraline Hcl) 25 Mg Tablet 25 Mg PO DAILY Zocor (Simvastatin) 10 Mg Tablet 10 Mg PO HS Tylenol (Acetaminophen) 325 Mg Tablet 650 Mg PO TID Tylenol (Acetaminophen) 325 Mg Tablet 650 Mg PO Q4HRS PRN Synthroid (Levothyroxine Sodium) 88 Mcg Tablet 88 Mcg PO DAILYAC Seroquel (Quetiapine Fumarate) 50 Mg Tablet 50 Mg PO BID92 Seroquel (Quetiapine Fumarate) 100 Mg Tablet 100 Mg PO HS Prosight Tablet (Beta-Carotene(A) W-C & E/Min) 1 Each Tablet 1 Each PO DAILY Omeprazole 20 Mg Capsule.dr 20 Mg PO DAILY Namenda (Memantine Hcl) 10 Mg Tablet 10 Mg PO BID Alum-Mag Hydroxide-Simeth Liq (Mag Hydrox/Al Hydrox/Simeth) 360 Ml Oral.susp 30 Ml PO Q4HRS PRN Glucosamine & Chondroitin Cap (Glucosa Barriga 2KCL/Chondroitin Barriga) 1 Each Capsule 1 Each PO BID Estrace (Estradiol) 42.5 Gm Cream.appl 1 Gm VG 3X/WEEK Ditropan Xl (Oxybutynin Chloride) 10 Mg Tab.er.24 10 Mg PO DAILY Cranberry (Cranberry Extract) 405 Mg Capsule 405 Mg PO BID Colace (Docusate Sodium) 100 Mg Capsule 100 Mg PO DAILY Vitamin D3 (Cholecalciferol (Vitamin D3)) 1,000 Unit Tablet 2,000 Unit PO Calcium 500 + Vit D 200 Tablet (Calcium Carbonate/Vitamin D3) 1 Each Tablet 1 Each PO DAILY Ativan (Lorazepam) 0.5 Mg Tablet 0.5 Mg PO PRN Q4HRS PRN Aspirin 81 Mg Tab.chew 81 Mg PO DAILY Diagnosis: Problems: (1) Anxiety disorder (2) Dementia, vascular, with depression (3) Dementia, vascular, with delusions (4) Dementia in Alzheimer's disease with depression (5) Dementia in Alzheimer's disease with delusions (6) Impulse control disorder FERNANDA SOOD MD Jan 03, 2017 19:38
--- NOTE | 2017-01-04 00:09 | PN ---
DATE: 01/02/2017 This is a late entry for 01/02/2017 and covers elements not covered in my initial note. SUBJECTIVE: The patient was seen individually evening of 01/02/2017 in her room. She has been pleasant, slept in the morning of 01/02/2017, took her medications the previous evening, but she was confused, stripped herself off clothing and slept naked in her bed and nursing staff did not make a big issue of this. During the day on 01/02/2017, she has been more cooperative, although certainly confused. REVIEW OF SYSTEMS: No CV, , pulmonary, eye, ENT system symptoms on review. Reliability poor. MENTAL STATUS EXAM: I met with the patient in her room after she had finished her supper quite some time back and she was able to remember that she had beef and noodles for supper. This was surprising. Insight, judgment, recent memory otherwise is impaired. Remote is somewhat poor. Mood and affect lability is improved. No suicidal or homicidal ideation. LABORATORY DATA: Reviewed. IMPRESSION: Unchanged from initial note. PLAN: Continue current psychotropics. Adjust further as clinically indicated. MAN Carson SOOD MD DR: NAOMI/tonya JOB#: [id number] / [id number]
[2017-01-04] MEDS ORDERED: DIVA125C PO (03:46)
[2017-01-04] MEDS ORDERED: IPRA3AMP NEB (03:55)
[2017-01-04] MEDS ORDERED: MAGN71.5 PO (04:14)
[2017-01-04] MEDS ORDERED: MIRT15TA3 PO (04:25)
[2017-01-04 05:43] VITALS: BP 135/70
[2017-01-04] MEDS: LEVOTHYROXINE 88 MCG TABLET PO SCH (06:10)
[2017-01-04] MEDS ORDERED: MAGN64TA6 PO (07:52)
[2017-01-04] MEDS ORDERED: MAGN2400 PO (07:59)
[2017-01-04] MEDS ORDERED: METH29OI TP (08:01)
[2017-01-04] MEDS: PANTOPRAZOLE 20 MG TABLET. PO SCH (08:58)
[2017-01-04] MEDS: DOCUSATE SODIUM 100 MG CAPSULE PO SCH (08:58)
[2017-01-04] MEDS: ASPIRIN 81 MG TAB.CHEW PO SCH (08:58)
[2017-01-04] MEDS: MEMANTINE 10 MG TABLET. PO SCH (08:59)
[2017-01-04] MEDS: GLUCOSAMINE/CHOND 500/400MG CAPSULE PO SCH (08:59)
[2017-01-04] MEDS: MAGNESIUM CHLORIDE ER 64 MG TABLET.ER PO SCH (08:59)
[2017-01-04] MEDS: DIVALPROEX 125 MG CAP.SPRINK PO SCH ×2 (08:59→12:36)
[2017-01-04] MEDS: CALCIUM CARB/VIT D3 500/200 TABLET PO SCH (08:59)
[2017-01-04] MEDS: OXYBUTYNIN CHLORIDE 5 MG TABLET PO SCH (08:59)
[2017-01-04] MEDS: MULTIVITAMIN I-VITE TABLET. PO SCH (08:59)
[2017-01-04] MEDS: QUEtiapine 50 MG TABLET. PO SCH ×2 (09:00→12:36)
[2017-01-04] MEDS: ACETAMINOPHEN 325 MG TABLET PO SCH ×2 (09:00→12:36)
[2017-01-04] MEDS: SERTRALINE 50 MG TABLET. PO SCH (09:01)
[2017-01-04] MEDS: CHOLECALCIFEROL (VITAMIN D3) 1,000 UNIT TABLET PO SCH (09:01)
--- NOTE | 2017-01-04 18:31 | PDOC ---
Exam Geoff Demential Exam: Geoff Note: Please also refer to the separate dictated note~for this date of service dictated separately.~Patient seen individually. Discussed the patient with Nursing staff reviewed the chart.~Reviewed interim history and current functioning. Reviewed vital signs,~Labs/ Radiology~and current medications noted below. Continue current treatment with the changes noted in the dictated addendum note Assessment: Vital Signs: Vital Signs Date Time Temp Pulse Resp B/P (MAP) Pulse Ox O2 Delivery O2 Flow Rate FiO2 01/04/17 05:43 98.0 71 20 135/70 (91) 91 01/03/17 05:48 Room Air I&O Intake and Output 01/04/17 07:00 Intake Total 1040 ml Balance 1040 ml Intake Oral 1040 ml # Voids 1 Current Medications: Meds: Current Medications Lorazepam (Ativan) 0.5 mg PRN Q4HRS PRN PO ANXIETY Last administered on 00:53; Start 12/26/16 at 19:15; Stop 01/04/17 at 14:07; Status DC Memantine (Namenda) 10 mg BID PO Last administered on 01/04/17 08:59; Start at 21:00; Stop 01/04/17 at 14:07; Status DC Quetiapine Fumarate (SEROquel) 50 mg BID92 PO Last administered on 01/04/17 12: 36; Start 12/27/16 at 09:00; Stop 01/04/17 at 14:07; Status DC Quetiapine Fumarate (SEROquel) 100 mg HS PO Last administered on 01/03/17 19:32 ; Start 12/26/16 at 21:00; Stop 01/04/17 at 14:07; Status DC Sertraline HCl (Zoloft) 25 mg DAILY PO Last administered on 01/01/17 07:31; Start 12/27/16 at 09:00; Stop 01/01/17 at 18:02; Status DC Acetaminophen (Tylenol) 650 mg PRN Q6HRS PRN PO PAIN / TEMP; Start 12/26/16 at 19:15; Stop 12/26/16 at 20:36; Status DC Multi-Ingredient Ointment (Analgesic [place]) 1 carolina PRN QID PRN TP MUSCLE PAIN; Start 12/26/16 at 19:15; Stop 01/04/17 at 14:07; Status DC Al Hydroxide/Mg Hydroxide (Mylanta Plus Xs) 15 ml PRN AFTMEALHC PRN PO DYSPEPSIA; Start 12/26/16 at 19:15; Stop 01/04/17 at 14:07; Status DC Magnesium Hydroxide (Milk Of Magnesia) 2,400 mg PRN QHS PRN PO CONSTIPATION; Start 12/26/16 at 19:15; Stop 01/04/17 at 14:07; Status DC Acetaminophen (Tylenol) 650 mg PRN Q4HRS PRN PO MILD PAIN; Start 12/26/16 at 20 :30; Stop 01/04/17 at 14:07; Status DC Acetaminophen (Tylenol) 650 mg TID PO Last administered on 01/04/17 12:36; Start 12/26/16 at 21:00; Stop 01/04/17 at 14:07; Status DC Aspirin (Children'S Aspirin) 81 mg DAILY PO Last administered on 01/04/17 08:58 ; Start 12/27/16 at 09:00; Stop 01/04/17 at 14:07; Status DC Calcium/Vitamin D (Oscal D 500mg/ 200uts) 1 tab DAILY PO Last administered on 08:59; Start 12/27/16 at 09:00; Stop 01/04/17 at 14:07; Status DC Vitamin D (Vitamin D3) 2,000 unit DAILY PO Last administered on 01/04/17 09:01 ; Start 12/27/16 at 09:00; Stop 01/04/17 at 14:07; Status DC Docusate Sodium (Colace) 100 mg DAILY PO Last administered on 01/04/17 08:58; Start 12/27/16 at 09:00; Stop 01/04/17 at 14:07; Status DC Estradiol (Estrace) 1 carolina 3X/WEEK VG ; Start 12/27/16 at 09:00; Stop 12/27/16 at 12:08; Status DC Levothyroxine Sodium (Synthroid) 88 mcg DAILY06 PO Last administered on 06:10; Start 12/27/16 at 06:00; Stop 01/04/17 at 14:07; Status DC Simvastatin (Zocor) 10 mg HS PO Last administered on 01/03/17 19:32; Start at 21:00; Stop 01/04/17 at 14:07; Status DC Multivitamins/ Minerals (I-Bobby) 1 tab DAILY PO Last administered on 01/04/17 08:59; Start 12/27/16 at 09:00; Stop 01/04/17 at 14:07; Status DC Non-Formulary Medication 405 mg BID PO ; Start 12/26/16 at 21:00; Stop 12/26/16 at 21:00; Status DC Glucosamine/ Chondroitin (Glucosamine-Chondroitin 500/400mg) 1 cap BID PO Last administered on 01/04/17 08:59; Start 12/26/16 at 21:00; Stop 01/04/17 at 14:07; Status DC Non-Formulary Medication 30 ml Q4HRS PRN PO indigestion; Start 12/26/16 at 20: 30; Stop 12/26/16 at 20:41; Status DC Pantoprazole Sodium (Protonix) 20 mg DAILYAC PO Last administered on 01/04/17 08:58; Start 12/27/16 at 07:30; Stop 01/04/17 at 14:07; Status DC Oxybutynin Chloride (Ditropan) 5 mg BID PO Last administered on 01/04/17 08:59 ; Start 12/26/16 at 21:00; Stop 01/04/17 at 14:07; Status DC Estradiol (Estrace) 1 carolina MoWeFr@2100 VG Last administered on 12/29/16 19:21; Start 12/27/16 at 21:00; Stop 01/04/17 at 14:07; Status DC Divalproex Sodium (Depakote Sprinkles) 125 mg BID92 PO Last administered on 01/04 12:36; Start 12/28/16 at 14:00; Stop 01/04/17 at 14:07; Status DC Magnesium Chloride (Mag Delay) 128 mg DAILY PO Last administered on 01/04/17 08 :59; Start 12/28/16 at 10:45; Stop 01/04/17 at 14:07; Status DC Albuterol/ Ipratropium (Duoneb) 3 ml PRN QID PRN NEB WHEEZING; Start 12/28/16 at 11:15; Stop 01/04/17 at 14:07; Status DC Sertraline HCl (Zoloft) 50 mg DAILY PO Last administered on 01/04/17 09:01; Start 01/02/17 at 09:00; Stop 01/04/17 at 14:07; Status DC Mirtazapine (Remeron) 7.5 mg QHS PO Last administered on 01/03/17 19:32; Start 01/01/17 at 21:00; Stop 01/04/17 at 14:07; Status DC Active Scripts Active Reported Milk Of Magnesia (Magnesium Hydroxide) 2,400 Mg/10 Ml Oral.susp 2,400 Mg PO HS PRN Mag64 (Magnesium Chloride) 64 Mg Tablet.er 128 Mg PO DAILY Mirtazapine 15 Mg Tablet 7.5 Mg PO QHS Duoneb 0.5-3(2.5) Mg/3 Ml (Albuterol/Ipratropium) 3 Ml Ampul.neb 3 Ml NEB QID PRN Depakote Sprinkle (Divalproex Sodium) 125 Mg Cap.sprink 125 Mg PO BID92 Zoloft (Sertraline Hcl) 25 Mg Tablet 50 Mg PO DAILY Zocor (Simvastatin) 10 Mg Tablet 10 Mg PO HS Tylenol (Acetaminophen) 325 Mg Tablet 650 Mg PO TID Tylenol (Acetaminophen) 325 Mg Tablet 650 Mg PO Q4HRS PRN Synthroid (Levothyroxine Sodium) 88 Mcg Tablet 88 Mcg PO DAILYAC Seroquel (Quetiapine Fumarate) 50 Mg Tablet 50 Mg PO BID92 Seroquel (Quetiapine Fumarate) 100 Mg Tablet 100 Mg PO HS Prosight Tablet (Beta-Carotene(A) W-C & E/Min) 1 Each Tablet 1 Each PO DAILY Omeprazole 20 Mg Capsule.dr 20 Mg PO DAILY Namenda (Memantine Hcl) 10 Mg Tablet 10 Mg PO BID Alum-Mag Hydroxide-Simeth Liq (Mag Hydrox/Al Hydrox/Simeth) 360 Ml Oral.susp 15 Ml PO Q4HRS PRN Glucosamine & Chondroitin Cap (Glucosa Barriga 2KCL/Chondroitin Barriga) 1 Each Capsule 1 Each PO BID Estrace (Estradiol) 42.5 Gm Cream.appl 1 Gm VG 3X/WEEK Ditropan Xl (Oxybutynin Chloride) 10 Mg Tab.er.24 5 Mg PO BID Colace (Docusate Sodium) 100 Mg Capsule 100 Mg PO DAILY Vitamin D3 (Cholecalciferol (Vitamin D3)) 1,000 Unit Tablet 2,000 Unit PO Calcium 500 + Vit D 200 Tablet (Calcium Carbonate/Vitamin D3) 1 Each Tablet 1 Each PO DAILY Ativan (Lorazepam) 0.5 Mg Tablet 0.5 Mg PO PRN Q4HRS PRN Aspirin 81 Mg Tab.chew 81 Mg PO DAILY Analgesic [place] (Methyl Salicylate/Menthol) 28 Gm Oint...g. 1 Gm TP QID PRN Diagnosis: Problems: (1) Impulse control disorder (2) Dementia in Alzheimer's disease with delusions (3) Dementia in Alzheimer's disease with depression (4) Dementia, vascular, with delusions (5) Dementia, vascular, with depression (6) Anxiety disorder FERNANDA SOOD MD Jan 04, 2017 18:30
--- NOTE | 2017-01-04 21:56 | PN ---
DATE: 01/03/2017 This late entry 01/03/2017 covers elements not covered in my initial note. SUBJECTIVE: I met with the patient in the evening of 01/03/2017. Overall, she remains confused, is calm, compliant. I met with her at some length in her room. She certainly did not remember me from each day previously that I have seen her. She says she talked to her parents the morning of 01/03/2017 and wants to be home with her parents. She is somewhat exit seeking after lunch, but otherwise, spends much time in her room, pleasant, not aggressive. REVIEW OF SYSTEMS: No CV, , eye, ENT, pulmonary system symptoms on review. Reliability poor. MENTAL STATUS EXAM: Insight, judgment, recent and remote memory, attention, concentration, fund of knowledge poor, consistent with her diagnosis mentioned in my initial note. PLAN: Continue current psychotropics. Possible transition to nursing facility on 01/04/2017. FERNANDA SOOD MD DR: NAOMI/tonya JOB#: [id number] / [id number]
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
== END 2017-01-04 14:07 | disposition home or self-care (01) | DRG 884 ==
LOC: ER 16:01 → GEROPSY 17:40
PROVIDERS: ADMIT Psychiatry & Neurology Psychiatry; ATTEND Psychiatry & Neurology Psychiatry
DX: F01.51 Vascular dementia, unspecified severity, with behavioral disturbance (principal); F02.81 Dementia in other diseases classified elsewhere, unspecified severity, with behavioral disturbance; E44.1 Mild protein-calorie malnutrition; G30.9 Alzheimer's disease, unspecified; E78.5 Hyperlipidemia, unspecified; E83.42 Hypomagnesemia; F41.9 Anxiety disorder, unspecified; F63.9 Impulse disorder, unspecified; I12.9 Hypertensive chronic kidney disease with stage 1 through stage 4 chronic kidney disease, or unspecified chronic kidney disease; J44.9 Chronic obstructive pulmonary disease, unspecified; K21.9 Gastro-esophageal reflux disease without esophagitis; N18.3 Chronic kidney disease, stage 3 (moderate); M81.0 Age-related osteoporosis without current pathological fracture; Z66 Do not resuscitate; F32.9 Major depressive disorder, single episode, unspecified; F22 Delusional disorders; E03.9 Hypothyroidism, unspecified; K57.90 Diverticulosis of intestine, part unspecified, without perforation or abscess without bleeding; M19.90 Unspecified osteoarthritis, unspecified site; R41.3 Other amnesia; M54.2 Cervicalgia; Z79.899 Other long term (current) drug therapy; Z87.891 Personal history of nicotine dependence; Z87.440 Personal history of urinary (tract) infections; Z88.0 Allergy status to penicillin; Z88.5 Allergy status to narcotic agent
CPT/HCPCS: 36415; 70450; 71010; 72125; 80053; 80061; 80164; 81001; 83036; 83540; 83550; 83690; 83735; 84439; 84443; 84481; 85027; 86592; 86593; 87086; 93005; 99285-25